=== PATIENT | female | born 1975 | race Caucasian/White ===

== ENCOUNTER 2019-02-09 01:25 | Emergency (ER) | payer BC ==
[2019-02-09] MEDS ORDERED: ONDANSETRON 4 MG/2 ML VIAL ONE ×2 (01:39→04:03)
[2019-02-09] MEDS ORDERED: NA CHLORIDE 0.9% 1,000 ML ONE (01:39)
[2019-02-09] MEDS ORDERED: KETOROLAC 30 MG/ML INJ ONE (01:39)
[2019-02-09 02:06] LABS: Absolute Lymphocytes (CBC) 3.2 K/uL (0.7-4.9); Basophils % 0.7 % (0-1.3); Hematocrit 33.3 % (36.0-45.0); Lymphocytes % 27.7 % (15.3-44.8); MPV 8.4 fL (7.6-11.3); RBC Red Blood Cell Count 3.94 M/uL (3.86-4.86)
[2019-02-09 02:29] LABS: ALT/SGPT 17 U/L (12-78); AST/SGOT 20 U/L (15-37); Albumin 3.3 g/dL (3.4-5.0); Alkaline Phosphatase 49 U/L (45-117); BUN Blood Urea Nitrogen 15 mg/dL (7-18); Bicarbonate 25 mmol/L (21-32); Bilirubin Direct < 0.1 mg/dL (0-0.2); Bilirubin Total 0.3 mg/dL (0.2-1.0); Glucose Level 111 mg/dL (74-106); Lipase 139 U/L (73-393); Protein, Total 6.7 g/dL (6.4-8.2); Sodium Level 141 mmol/L (136-145)
--- NOTE | 2019-02-09 04:20 | ER ---
Nurse's Notes [facility] Name: Kadie George Age: 43 yrs Sex: Female : 1975 Arrival Date: 02/09/2019 Time: 01:27 Bed 5 Private MD: Diagnosis: Cholelithiasis Presentation: 02/09 01:32 Presenting complaint: Patient states: "I have been throwing up and having very bad jd3 stomach pain across the top for about 3 hours now.". Transition of care: patient was not received from another setting of care. Onset of symptoms was February 09, 2019. Risk Assessment: Do you want to hurt yourself or someone else? Patient reports no desire to harm self or others. Initial Sepsis Screen: Does the patient meet any 2 criteria? No. Patient's initial sepsis screen is negative. Does the patient have a suspected source of infection? No. Patient's initial sepsis screen is negative. Care prior to arrival: None. 01:32 Method Of Arrival: Ambulatory jd3 01:32 Acuity: GIOVANI 3 jd3 CONTINUITY TESTER: 01:50 LMP N/A - Irregular menses jd3 Historical: - Allergies: 01:35 No Known Allergies; jd3 - Home Meds: 01:35 None [Active]; jd3 - PMHx: 01:35 None; jd3 - PSHx: 01:35 None; jd3 - Immunization history:: Adult Immunizations up to date. - Social history:: Smoking status: Patient/guardian denies using tobacco. - Ebola Screening: : Patient negative for fever greater than or equal to 101.5 degrees Fahrenheit, and additional compatible Ebola Virus Disease symptoms. Screenin:50 Abuse screen: Denies threats or abuse. Nutritional screening: No deficits noted. jd3 Tuberculosis screening: No symptoms or risk factors identified. Fall Risk IV access (20 points). Ambulatory Aid- None/Bed Rest/Nurse Assist (0 pts). Gait- Normal/Bed Rest/Wheelchair (0 pts) Mental Status- Oriented to own ability (0 pts). Total Vides Fall Scale indicates No Risk (0-24 pts). Assessment: 01:30 General: Appears in no apparent distress. uncomfortable, Behavior is calm, cooperative, jd3 appropriate for age. Pain: Complains of pain in right upper quadrant and left upper quadrant Pain does not radiate. Quality of pain is described as sharp, tender. Neuro: Level of Consciousness is awake, alert, obeys commands, Oriented to person, place, time, situation. Cardiovascular: Denies chest pain, Capillary refill < 3 seconds Patient's skin is warm and dry. Respiratory: Airway is patent Respiratory effort is even, unlabored, Respiratory pattern is regular, symmetrical, Denies cough, shortness of breath. GI: Abdomen is round non-distended, Bowel sounds present X 4 quads. Abd is soft X 4 quads Abdomen is tender to palpation in right upper quadrant and left upper quadrant. : Urine is clear, Denies burning with urination. EENT: No signs and/or symptoms were reported regarding the EENT system. Derm: Skin is intact, Skin is dry, Skin is normal, Skin temperature is warm. Musculoskeletal: Circulation, motion, and sensation intact. Range of motion: intact in all extremities. 02:42 Reassessment: Patient appears in no apparent distress at this time. Patient and/or jd3 family updated on plan of care and expected duration. Pain level reassessed. Patient is alert, oriented x 3, equal unlabored respirations, skin warm/dry/pink. Patient states feeling better. 03:58 Reassessment: Patient appears in no apparent distress at this time. Patient and/or jd3 family updated on plan of care and expected duration. Pain level reassessed. Patient is alert, oriented x 3, equal unlabored respirations, skin warm/dry/pink. awaiting CT scan results. Patient states feeling better. 04:04 Reassessment: Patient appears in no apparent distress at this time. Patient and/or jd3 family updated on plan of care and expected duration. Pain level reassessed. Patient is alert, oriented x 3, equal unlabored respirations, skin warm/dry/pink. reporting feeling nauseous, provider notified. 04:30 Reassessment: Patient appears in no apparent distress at this time. Patient and/or jd3 family updated on plan of care and expected duration. Pain level reassessed. Patient is alert, oriented x 3, equal unlabored respirations, skin warm/dry/pink. reported understanding of discharge instructions, even and steady gait upon discharge. Patient states feeling better. Vital Signs: 01:35 BP 148 / 76; Pulse 66; Resp 18 S; Temp 97.5(O); Pulse Ox 100% on R/A; Weight 127.01 kg jd3 (R); Height 5 ft. 5 in. (165.10 cm) (R); Pain 5/10; 02:42 Pulse 65; Resp 17 S; Pulse Ox 100% on R/A; Pain 2/10; jd3 04:30 BP 125 / 72; Pulse 70; Resp 16 S; Pulse Ox 100% on R/A; Pain 1/10; jd3 01:35 Body Mass Index 46.59 (127.01 kg, 165.10 cm) jd3 ED Course: 01:27 Patient arrived in ED. bb 01:29 Jose R Murray, DARION is PHCP. pm1 01:29 Axel Lopez MD is Attending Physician. pm1 01:32 Leeroy Linares, STEVE is Primary Nurse. jd3 01:33 Triage completed. jd3 01:35 Arm band placed on. jd3 01:44 Inserted saline lock: 20 gauge in right antecubital area, using aseptic technique. mt Blood collected. 01:50 Patient has correct armband on for positive identification. Bed in low position. Call j light in reach. Side rails up X 1. Adult w/ patient. 03:06 CT Abd/Pelvis - IV Contrast Only In Process Unspecified. EDMS 03:07 CT completed. Patient tolerated procedure well. Patient moved to CT via stretcher. Patient moved back from CT. 04:18 Maurice Sofia MD is Referral Physician. tw4 04:19 Mickey Concepcion MD is Referral Physician. tw4 04:19 Jl Thomas MD is Referral Physician. tw4 04:31 No provider procedures requiring assistance completed. IV discontinued, intact, jd3 bleeding controlled, No redness/swelling at site. Pressure dressing applied. Administered Medications: 01:48 Drug: Zofran 4 mg Route: IVP; Site: right antecubital; jd3 02:45 Follow up: Response: No adverse reaction jd3 01:48 Drug: TORadol 30 mg Route: IVP; Site: right antecubital; jd3 02:45 Follow up: Response: No adverse reaction jd3 01:48 Drug: NS 0.9% 1000 ml Route: IV; Rate: 1000 ml; Site: right antecubital; jd3 04:05 Follow up: Response: No adverse reaction; IV Status: Completed infusion; IV Intake: jd3 1000ml 04:05 Drug: Zofran 4 mg Route: IVP; Site: right antecubital; jd3 04:31 Follow up: Response: No adverse reaction jd3 Intake: 04:05 IV: 1000ml; Total: 1000ml. jd3 Outcome: 04:19 Discharge ordered by . tw4 04:31 Discharged to home ambulatory, with family. jd3 04:31 Condition: stable 04:31 Discharge instructions given to patient, Instructed on discharge instructions, follow up and referral plans. medication usage, Demonstrated understanding of instructions, follow-up care, medications, Prescriptions given X 2. 04:31 Patient left the ED. jd3 Signatures: Dispatcher [employer] EDMS Best Argueta Brenda, RN RN Jose R Burk, DARION WELLNESS GUIDE pm1 Breanna Baker mt, Jonathon, RN RN jd3 Wadley, Terrence, MD MD tw4 Corrections: (The following items were deleted from the chart) 04:04 04:04 Reassessment: Patient appears in no apparent distress at this time. Patient jd3 and/or family updated on plan of care and expected duration. Pain level reassessed. Patient is alert, oriented x 3, equal unlabored respirations, skin warm/dry/pink. reporting feeling nauseous. jd3
--- NOTE | 2019-02-09 04:20 | EDPHYS ---
Physician Documentation [facility] Name: Kadie George Age: 43 yrs Sex: Female : 1975 Arrival Date: 02/09/2019 Time: 01:27 Bed 5 Private MD: ED Physician Axel Lopez HPI: 02/09 02:29 This 43 yrs old Female presents to ER via Ambulatory with complaints of pm1 Abdominal Pain, Nausea/Vomiting. 02:29 The patient presents with abdominal pain in the upper abdomen. Onset: The pm1 symptoms/episode began/occurred 3 hour(s) ago. The symptoms do not radiate. Associated signs and symptoms: Pertinent positives: nausea and vomiting, Pertinent negatives: chest pain, diarrhea, dysuria, fever, headache, shortness of breath. The symptoms are described as achy, crampy. Modifying factors: The symptoms are alleviated by nothing, the symptoms are aggravated by nothing. Severity of pain: in the emergency department the pain is actually worse. The patient has experienced a previous episode, approximately 5 months ago, dx with gastritis. The patient has not recently seen a physician. SLASHER RUNNER: 01:50 LMP N/A - Irregular menses jd3 Historical: - Allergies: 01:35 No Known Allergies; jd3 - Home Meds: 01:35 None [Active]; jd3 - PMHx: 01:35 None; jd3 - PSHx: 01:35 None; jd3 - Immunization history:: Adult Immunizations up to date. - Social history:: Smoking status: Patient/guardian denies using tobacco. - Ebola Screening: : Patient negative for fever greater than or equal to 101.5 degrees Fahrenheit, and additional compatible Ebola Virus Disease symptoms. ROS: 02:29 Constitutional: Negative for fever, chills, and weight loss, Eyes: Negative for injury, pm1 pain, redness, and discharge, ENT: Negative for injury, pain, and discharge, Neck: Negative for injury, pain, and swelling, Cardiovascular: Negative for chest pain, palpitations, and edema, Respiratory: Negative for shortness of breath, cough, wheezing, and pleuritic chest pain. 02:29 Back: Negative for injury and pain, : Negative for injury, bleeding, discharge, and swelling, MS/Extremity: Negative for injury and deformity, Skin: Negative for injury, rash, and discoloration, Neuro: Negative for headache, weakness, numbness, tingling, and seizure. 02:29 Abdomen/GI: Positive for abdominal pain, nausea and vomiting, Negative for diarrhea, constipation. Exam: 02:29 Constitutional: This is a well developed, well nourished patient who is awake, alert, pm1 and in no acute distress. Head/Face: Normocephalic, atraumatic. Chest/axilla: Normal chest wall appearance and motion. Nontender with no deformity. No lesions are appreciated. Cardiovascular: Regular rate and rhythm with a normal S1 and S2. No gallops, murmurs, or rubs. Normal PMI, no JVD. No pulse deficits. Respiratory: Lungs have equal breath sounds bilaterally, clear to auscultation and percussion. No rales, rhonchi or wheezes noted. No increased work of breathing, no retractions or nasal flaring. 02:29 Back: No spinal tenderness. No costovertebral tenderness. Full range of motion. Skin: Warm, dry with normal turgor. Normal color with no rashes, no lesions, and no evidence of cellulitis. MS/ Extremity: Pulses equal, no cyanosis. Neurovascular intact. Full, normal range of motion. 02:29 Abdomen/GI: Inspection: obese Bowel sounds: normal, Palpation: soft, mild abdominal tenderness, in the right upper quadrant and left upper quadrant, mass, is not appreciated, rebound tenderness, is not appreciated. 02:29 Neuro: Orientation: is normal, Motor: is normal, moves all fours, Sensation: Vital Signs: 01:35 BP 148 / 76; Pulse 66; Resp 18 S; Temp 97.5(O); Pulse Ox 100% on R/A; Weight 127.01 kg jd3 (R); Height 5 ft. 5 in. (165.10 cm) (R); Pain 5/10; 02:42 Pulse 65; Resp 17 S; Pulse Ox 100% on R/A; Pain 2/10; jd3 04:30 BP 125 / 72; Pulse 70; Resp 16 S; Pulse Ox 100% on R/A; Pain 1/10; jd3 01:35 Body Mass Index 46.59 (127.01 kg, 165.10 cm) jd3 MDM: 01:32 Patient medically screened. pm1 02:32 Data reviewed: vital signs. Data interpreted: Pulse oximetry: on room air is 100 %. pm1 Interpretation: normal. 02/09 01:34 Order name: Basic Metabolic Panel pm1 02/09 01:34 Order name: CBC with Diff; Complete Time: 02:28 pm1 02/09 01:34 Order name: Creatinine for Radiology; Complete Time: 02:32 pm1 02/09 01:34 Order name: Hepatic Function; Complete Time: 02:32 pm1 02/09 04:11 Interpretation: Normal except: ALB 3.3; A/G 1.0. tw4 02/09 01:34 Order name: Lipase; Complete Time: 02:32 pm1 02/09 01:35 Order name: Basic Metabolic Panel; Complete Time: 02:32 EDMS 02/09 01:34 Order name: IV Saline Lock; Complete Time: 01:47 pm1 02/09 01:34 Order name: CT Abd/Pelvis - IV Contrast Only pm1 02/09 01:53 Order name: Urine Dipstick--Ancillary (enter results) em1 02/09 01:53 Order name: Urine --Ancillary (enter results) em02/09 01:34 Order name: Labs collected and sent; Complete Time: 01:47 pm1 02/09 01:34 Order name: Urine Dipstick-Ancillary (obtain specimen); Complete Time: 01:47 pm1 02/09 01:34 Order name: Urine Test (obtain specimen); Complete Time: 01:47 pm1 Administered Medications: 01:48 Drug: Zofran 4 mg Route: IVP; Site: right antecubital; jd3 02:45 Follow up: Response: No adverse reaction jd3 01:48 Drug: TORadol 30 mg Route: IVP; Site: right antecubital; jd3 02:45 Follow up: Response: No adverse reaction jd3 01:48 Drug: NS 0.9% 1000 ml Route: IV; Rate: 1000 ml; Site: right antecubital; jd3 04:05 Follow up: Response: No adverse reaction; IV Status: Completed infusion; IV Intake: jd3 1000ml 04:05 Drug: Zofran 4 mg Route: IVP; Site: right antecubital; jd3 04:31 Follow up: Response: No adverse reaction jd3 Disposition: 06:27 Co-signature as Attending Physician, Axel Lopez MD I agree with the assessment and tw4 plan of care. Disposition: 02/09/19 04:19 Discharged to Home. Impression: Cholelithiasis. - Condition is Stable. - Discharge Instructions: Biliary Colic, Adult. - Prescriptions for Ibuprofen 800 mg Oral Tablet - take 1 tablet by ORAL route every 12 hours As needed take with food; 20 tablet. Zofran 4 mg Oral Tablet - take 1 tablet by ORAL route every 12 hours As needed; 20 tablet. - Medication Reconciliation Form, Thank You Letter, Antibiotic Education, Prescription Opioid Use form. - Follow up: Private Physician; When: Upon discharge from the Emergency Department; Reason: If symptoms return, Recheck today's complaints, Continuance of care. Follow up: Maurice Sofia MD; When: Upon discharge from the Emergency Department; Reason: If symptoms return, Recheck today's complaints, Continuance of care. Follow up: Mickey Concepcion MD; When: Upon discharge from the Emergency Department; Reason: If symptoms return, Recheck today's complaints, Continuance of care. Follow up: Jl Thomas MD; When: Upon discharge from the Emergency Department; Reason: If symptoms return, Recheck today's complaints, Continuance of care. - Problem is new. - Symptoms have improved. Signatures: Dispatcher [employer] EDMS Jose R Murray, SEO ASSOCIATE SEO ASSOCIATE pm1 Leeroy Linares, STEVE RN Axel Spencer MD MD tw4 Corrections: (The following items were deleted from the chart) 04:31 04:19 02/09/2019 04:19 Discharged to Home. Impression: Cholelithiasis. Condition is jd3 Stable. Forms are Medication Reconciliation Form, Thank You Letter, Antibiotic Education, Prescription Opioid Use. Follow up: Private Physician; When: Upon discharge from the Emergency Department; Reason: If symptoms return, Recheck today's complaints, Continuance of care. Follow up: Maurice Sofia; When: Upon discharge from the Emergency Department; Reason: If symptoms return, Recheck today's complaints, Continuance of care. Follow up: Dr. Mickey Concepcion; When: Upon discharge from the Emergency Department; Reason: If symptoms return, Recheck today's complaints, Continuance of care. Follow up: Jl Thomas; When: Upon discharge from the Emergency Department; Reason: If symptoms return, Recheck today's complaints, Continuance of care. Problem is new. Symptoms have improved. tw4
[2019-02-09 04:39] VITALS: TEMP 97.5; O2SAT 100
[2019-02-09 04:42] VITALS: BP 125/72
[2019-02-09 05:15] LABS: Urine Blood TRACE (NEG); Urine Glucose NEGATIVE (NEG); Urine Protein NEGATIVE (NEG); Urine Specific Gravity 1.025 (1.005-1.030)
--- NOTE | 2019-02-09 10:39 | RAD REPORT ---
EXAM DESCRIPTION: CT - Abdomen Pelvis W Contrast - 02/09/2019 4:11 am CLINICAL HISTORY: The patient is 43 years old and is Female; ABD PAIN TECHNIQUE: Axial computed tomography images of the abdomen and pelvis with intravenous contrast. S agittal and coronal reformatted images were created and reviewed. This CT exam was performed using one or more of the following dose reduction techniques: automated exposure control, adjustment of t he mA and/or kV according to patient size, and/or use of iterative reconstruction technique. COMPARISON: No relevant prior studies available. FINDINGS: LUNG BASES: Unremarkable. No mass. No consolidation. HEART: The heart is enlarged. ABDOMEN: LIVER: Unremarkable. No mass. GALLBLADDER AND BILE DUCTS: A large gallstone is present within the neck of the gallbladder. PANCREAS: No ductal dilation. No mass. SPLEEN: Unremarkable. ADRENALS: Unremarkable. No mass. KIDNEYS AND URETERS: Unremarkable. No solid mass. No hydronephrosis. STOMACH AND BOWEL: The stomach is minimally fluid filled. The small bowel is normal in caliber. Stool is present throughout the colon. There is no mucosal thickening or evidence of bowel obstructio n. PELVIS: APPENDIX: The appendix is normal in caliber without surrounding inflammation. BLADDER: Unremarkable. No mass. REPRODUCTIVE: A 3.2 cm left ovarian cyst is present. No follow-up imaging is recommended. The ut erus and right ovary are unremarkable. ABDOMEN and PELVIS: INTRAPERITONEAL SPACE: Unremarkable. No free air. No significant fluid collection. BONES/JOINTS: No acute fracture. SOFT TISSUES: The soft tissues are normal. VASCULATURE: Unremarkable. No abdominal aortic aneurysm. LYMPH NODES: Unremarkable. No enlarged lymph nodes. IMPRESSION: Large gallstone lodged within the gallbladder neck. If there is clinical concern for acu te gallbladder pathology, findings could be further evaluated with ultrasound or HIDA scan. Electronically signed by: Savanah Mcbride MD 02/09/2019 4:07 AM CDT Due to temporary technical issues with the PACS/Fluency reporting system, reports are being signed by the in house radiologist as a courtesy to ensure prompt reporting. The interpreting radiologist is f ully responsible for the content of the report.
== END 2019-02-09 04:31 | disposition home or self-care (01) ==
LOC: ER 01:25
DX: K80.20 Calculus of gallbladder without cholecystitis without obstruction (principal)
CPT/HCPCS: 85025; 80048; 36415; 81025; 80076; 81003; 83690; 74177; Q9967; J7030; J2405 ×2; 96361; 96374; 96375; 99284

== ENCOUNTER 2019-02-18 10:48 | Day surgery (SDC) | payer BC ==
[2019-02-18] MEDS ORDERED: CEFAZOLIN/SWI 2gm 2 GM/20 ML SYR ONE (11:07)
[2019-02-18] MEDS ORDERED: Ringers Lactate 1,000 ML IV ONE (11:07)
[2019-02-18 11:29] LABS: Specific Gravity 1.015 (1.005-1.030)
[2019-02-18] MEDS ORDERED: MIDAZOLAM HCL 2 MG/2 ML INJ ONE (11:50)
[2019-02-18] MEDS ORDERED: PROPOFOL 200 MG/20 ML VIAL IV ONE ×2 (11:50→15:02)
[2019-02-18] MEDS ORDERED: FENTANYL CITR 100 MCG/2 ML ONE ×2 (11:50→14:36)
[2019-02-18] MEDS ORDERED: LIDOCAINE 2% MPF 5 ML VIAL ONE (11:51)
[2019-02-18] MEDS ORDERED: ONDANSETRON 4 MG/2 ML VIAL ONE ×2 (11:52→15:48)
[2019-02-18] MEDS ORDERED: KETOROLAC 30 MG/ML INJ ONE (14:15)
[2019-02-18] MEDS: HYDROMORPHONE HCL 1 MG/ML INJ ONE ×5 (15:10→15:27)
[2019-02-18] MEDS ORDERED: HYDROCODONE/APAP 5/325 MG TAB ONE (16:01)
[2019-02-18 16:53] VITALS: BP 165/86; TEMP 97.7; O2SAT 97
--- NOTE | 2019-02-19 10:20 | OP ---
Date of Procedure: 02/18/2019 Surgeon: Carol Crowder MD Preoperative Diagnoses: Heavy menstrual bleeding with regular cycles and dysmenorrhea and thickened endometrium. Postoperative Diagnoses: Heavy menstrual bleeding with regular cycles and dysmenorrhea thickened end ometrium. Procedures Performed: Hysteroscopy, D and C. Small polyps were removed as well. The endometrial ab lation with HTA. Complex procedure took about 45 minutes to perform. Anesthesia: General with LMA. Specimens: Endometrial curettings. Complications: No complications. Drains: No drains. Condition: Stable. Findings: The entire ablation cycle was completed. Intracavitary polyps were seen, that were tiny a nd had to be removed as they were occluding the drainage and I was unable to get a good flow check on the HTA machine. Deficit was a problem. She had to be dilated in order for the polypectomies to be performed. Once this was done, it was back bled that had to fixed as well. Once this was done, the entire cycle was conducted without any interruption. The patient is a 43-year-old with heavy bleeding. She has been evaluated with endometrial sampling. No atypia or malignancy. The patient has risk factors for this however after the sampling has been completed, the patient wanted to proceed with all the options including Levonorgestrel IUD and ablati on were discussed with the patient and the benefits risks were discussed. The patient had a tubal in the past, postablation tubal ligation syndrome. All complications including immediate and late life postop tubal ligation syndrome besides bleeding with infection, perforation were all discussed with the patient. Then, she was taken to the OR, 2 g of Ancef were given. She was placed in a supine fas hion on the operating table. General anesthesia given. She was placed in dorsal lithotomy position. Pelvic exam performed. Uterus enlarged, anteflexed, prep x3 with Betadine was done. Anterior lip grasped with tenaculum and then later an Allis clamp. As she was current, an attempt was made to ent er the uterine cavity. There were polyps, 1 near the internal os and 1 just inside it on the anterio r wall of the lowest part of the endometrial canal. There were other tiny thickened polypoid endomet rial tissue all around the uterine cavity. There was occlusion at the tip from these polyps, so care fully had to remove the polyps with the help of polyp forceps, and then once the cavity was entered, it was still difficult to perform the procedure because of the occlusion of the drainage tubing, whic h allowed the machine to . Then, the endometrial polyps were attempted to be removed again and once some more came out, still th e same problem was encountered. Then, D and C was performed after dilating the patient to 14-Greenlandic. Once all the tissue was retrieved, then thorough irrigation and suction of the cavity was performed with a HTA sheath, and the seal was obtained by placing an Allis on top of the HTA sheath next to it to prevent leakage. Once this was done, and finally the tip of the scope was placed in the center o f the cavity and the posterior vagina was packed after the cavity integrity test was done for minutes and there was no fluid loss. The entire ablation cycle took 1 minute and 11 seconds, was completed without any problems. At this point, there was occlusion of the drainage tubing and so once this was cleared . Ablation cycle and 1.5 minutes cooling cycle was connected. 30 mg of Toradol w as given for this patient. She was recovered from anesthesia and taken to the PACU. After the instr uments were removed, instrument, needle and sponge counts were done and were correct at the end of th e case was good ablation effect. There was irrigation after the ablation was completed. The patient was recovered from anesthesia and taken to PACU in stable condition. The EBL was minimal. She has a 1 month appointment. KEIRA Voice ID: [id number] Report ID: [id number]
== END 2019-02-18 16:50 | disposition home or self-care (01) ==
LOC: OR 10:48
PROVIDERS: ATTEND Obstetrics & Gynecology
PROC: 0U5B8ZZ Destruction of Endometrium, Via Natural or Artificial Opening Endoscopic (ICD-10-PCS; principal; 2019-02-18 13:00)
PROC: 0UDB7ZX Extraction of Endometrium, Via Natural or Artificial Opening, Diagnostic (ICD-10-PCS; 2019-02-18 13:00)
DX: N92.0 Excessive and frequent menstruation with regular cycle (principal); N94.6 Dysmenorrhea, unspecified; N84.0 Polyp of corpus uteri; R93.89 Abnormal findings on diagnostic imaging of other specified body structures; E66.9 Obesity, unspecified; Z68.42 Body mass index [BMI] 45.0-49.9, adult; F41.9 Anxiety disorder, unspecified; F32.9 Major depressive disorder, single episode, unspecified; Z83.3 Family history of diabetes mellitus
CPT/HCPCS: 81025; 88305; 58563; J2704; J2250; J3010 ×2; J1170 ×2; J0690; J2405 ×2

== ENCOUNTER 2019-12-21 06:25 | Day surgery (SDC) | payer BC ==
[2019-12-16 11:17] LABS: Absolute Lymphocytes (CBC) 2.8 K/uL (0.7-4.9); Basophils % 0.5 % (0-1.3); Hematocrit 36.2 % (36.0-45.0); Lymphocytes % 27.3 % (15.3-44.8); MPV 7.9 fL (7.6-11.3); RBC Red Blood Cell Count 4.22 M/uL (3.86-4.86)
--- OUTSIDE RECORDS SUMMARY | 2019-12-21 06:28 | XMS REPORT | Continuity of Care Document ---
:1975 Author Organization [facility] t Address [address] [place] [id number] Care Team Providers Name Role Phone Unavailable Unavailable Unavailable Problems This patient has no known problems. Allergies, Adverse Reactions, Alerts This patient has no known allergies or adverse reactions. Medications This patient has no known medications. Procedures This patient has no known procedures. Results Test Description Test Time Test Comments Results Result [facility] e Comments SCR MAMM 2018-10-23 MAMM BILATERAL BILATERAL CORDELL 15:21:06 CORDELL CAD CAD DIGITAL DIGITALBILATERAL FIRST EVER DIGITAL SCREENING MAMMOGRAM 3D/2D WITH CAD: 10/22/2018CLINICAL: Asymptomatic. Digital breast tomosynthesis was performed in addition to routine CC and MLO views. Current mammographic images were evaluated by either a [employer] M-Vu or a [employer] ImageChecker CAD (computer aided detection system). No prior exams were available for comparison. This is a baseline exam. The tissue of both breasts is heterogeneously dense. This may lower the sensitivity of mammography. No suspicious mass, architectural distortion, malignant type calcification, or lymph node abnormality detected. IMPRESSION: NEGATIVEThere is no mammographic evidence of malignancy. Resume annual screening mammography in one year. Your patient's mammogram demonstrates that she has dense breast tissue. This can hide abnormalities. In compliance with [place] law ([place]'s Law), your patient has been sent a letter which informs her of her breast density and notifies her that, depending on her individual risk factors for the development of breast cancer, she might benefit from additional screening tests such as ultrasound. Dense breast tissue, in and of itself, is a relatively common condition. Therefore, this information is not provided to cause undue concern, but rather to raise awareness and to promote discussion regarding the presence of other risk factors, in addition to dense breast tissue.Kevin Mcpherson M.D. rb/:10/23/2018 15:21:06 Bacteriology Professor: Luna Urias MM, [facility] Mammographyletter sent: BIRADS 1-2 Normal Mammogram BI-RADS: 1 Negative
[2019-12-21] MEDS ORDERED: HEPARIN 5000 UNIT/ML 1 ML VIAL ONE (06:52)
[2019-12-21] MEDS ORDERED: Ringers Lactate 1,000 ML IV ONE ×3 (06:52→11:01)
[2019-12-21] MEDS ORDERED: CEFAZOLIN/SWI 1gm 1 GM/10 ML SYR ONE (06:52)
[2019-12-21] MEDS ORDERED: SCOPOLAMINE HYDROBROMIDE PATCH TD ONE (06:52)
[2019-12-21] MEDS ORDERED: CEFAZOLIN/SWI 2gm 2 GM/20 ML SYR ONE (06:53)
[2019-12-21] MEDS ORDERED: propofoL 200 MG/20 ML VIAL IV ONE (07:23)
[2019-12-21] MEDS ORDERED: FENTANYL CITR 250 MCG/5 ML ONE (07:24)
[2019-12-21] MEDS ORDERED: dexAMETHasone 10 MG/ML VIAL ONE (07:24)
[2019-12-21] MEDS ORDERED: MIDAZOLAM HCL 2 MG/2 ML INJ ONE (07:24)
[2019-12-21] MEDS ORDERED: ONDANSETRON 4 MG/2 ML VIAL ONE (07:24)
[2019-12-21] MEDS ORDERED: ROCURONIUM 50 MG/5 ML VIAL IV ONE (07:24)
[2019-12-21] MEDS ORDERED: LIDOCAINE 2% MPF 5 ML VIAL ONE (07:24)
[2019-12-21] MEDS ORDERED: BUPIVACAINE 0.25% PF 30 ML VIAL ONE (07:33)
[2019-12-21] MEDS ORDERED: KETAMINE HCL 500 MG/5 ML VIAL ONE (08:15)
[2019-12-21] MEDS ORDERED: GLYCOPYRROLATE 0.2 MG/ML SYR ONE ×2 (08:45→10:59)
[2019-12-21] MEDS ORDERED: VECURONIUM 10 MG/VIAL IV ONE ×2 (08:54→10:28)
[2019-12-21] MEDS ORDERED: KETOROLAC 30 MG/ML INJ ONE (10:40)
[2019-12-21] MEDS ORDERED: NEOSTIGMINE 1 MG/ML -5 ML ONE (10:59)
[2019-12-21] MEDS ORDERED: MORPHINE 10 MG/ML VIAL ONE (11:17)
[2019-12-21] MEDS ORDERED: HYDROCODONE/APAP 5/325 MG TAB ONE (12:41)
--- NOTE | 2019-12-21 13:03 | OP ---
Date of Procedure: 12/21/2019 Surgeon: Carol Crowder MD [employer] Guard: Loren Borges. Preoperative Diagnoses: Menorrhagia, recurrent after ablation; pelvic pain. Morbid obesity, BMI 54. Postoperative Diagnoses: Menorrhagia, recurrent after ablation; pelvic pain and bilateral hematosalp inges. No endometriosis. Morbid obesity, BMI 54. Procedures Performed: Laparoscopic supracervical hysterectomy, bilateral salpingectomy, mini-lap for removal of uterine specimen. Estimated Blood Loss: Less than 50. Specimens: Uterus bilateral tubes. Complications: No complications. Drains: None. Condition: Stable. Indications For Procedure: The patient is a 44-year-old, presented with abnormal bleeding. Endometr ium was sampled, negative for atypia. Underwent an ablation about 6 months ago. Had improvement in her bleeding for a few months and then recurred with bleeding and much severe pain. Pain is way out of proportion to her bleeding and has been constant and after having discussed medical treatment opti ons, which had failed and was the reason why she went to the ablation. Discussed about the hysterect alexander, benefits and risks, and all the comorbid given her comorbidities. She was consented and brought to the OR. Description Of Procedure: 3 g of Ancef preop were given. 5000 heparin subcu was given. The patient was taken back to OR, placed in a supine fashion. General anesthesia given, intubation without any problems. Placed in a dorsal lithotomy position using Gallo stirrups. Arms tucked by the side using the sliders. After positioning, it was checked. SCDs were started. Time-out was done. Abdomen, v ulva, vagina, and perineum were prepped and draped in a sterile fashion. Park placed to drain the b ladder and attached for retrograde filling. A medium VCare introduced into the uterus without any pr oblems and fixed in place. The Park was then drained using the bag and the area was draped. A 1 cm supraumbilical incision made with a scalpel using open laparoscopy technique. Fascia was inci sed, tagged with 0 Vicryl sutures. Peritoneum entered bluntly. S-retractors were placed. Catrachito in troduced. There was 1 episode of bradycardia where we had to stop and then once this was recovered b ack to the heart rate in the 50s, then insufflation was done. After adequate insufflation, the camer a was used to check the site of entry unremarkable. The patient was then placed in Trendelenburg pos ition. I increased the pressure to 17 as there was very difficult visualization due to poor distenti on. Probably about 30-40 minutes at the end of the case, the insufflation max pressure was decreased to 16 mmHg and the patient appeared to be very stable at this point. No hemodynamics changes. Five left and right lower quadrant ports were placed under direct vision. Suprapubic 10-port was corky mckenzie after visualization of the pelvic cavity. Both hematosalpinges. These were observed. Uterus un remarkable. No endometriosis seen. Ureters unremarkable in their course. Ovaries completely normal . The plan was to do a supracervical hysterectomy and then to decrease the comorbidities as well as the ease of completion without conversion. The left tube was dissected with the help of the LigaSure, removed and handed off for specimen. Then , the utero-ovarian ligament and round ligament were taken down. Broad ligament opened up anterior p osterior leaves. The anterior broad ligament was opened up to create a bladder flap and the bladder was dissected inferiorly. Did not have to go much below the cup at all since the intention was to pe rform a supracervical. Posteriorly, peritoneum taken down to the area above the uterosacral insertion. Then, vessels were s keletonized, cauterized with bipolar basket tip. Then, went over to the opposite side, took the tube out with the LigaSure. Utero-ovarian ligament was cut. The round ligament was taken down. The bro ad ligament was taken down to the vessels. Vessels skeletonized. Anterior peritoneum raised to diss ect the bladder inferiorly and posteriorly, opened up to do the dissection made on the opposite side. Then, vessels were taken down after being skeletonized. There was excellent hemostasis. Then, usi ng a monopolar hook blade, the specimen was cut at the level of the internal os, possibly a little in ferior taking part of the cervix. Once the specimen was circumferentially cut and detached, a single -tooth tenaculum was used to hold the specimen. VCare removed. Then, cauterized the canal with the help of the bipolar basket tip and then hemostasis was secured on the cervix as appropriate. Kevinoug h irrigation suction was performed. The specimen was stitched on the cervix with a 0 Vicryl stitch s o that this could be held through the suprapubic port. All the ports were removed under direct visio n. Thorough irrigation suction was performed. Photographs were taken. Then, after de-sufflating th e abdomen, the fascia above the umbilicus was closed with the tagged 0 Vicryl sutures, tied to each o ther, subcutaneous simple 0 Vicryl stitch. All skin incisions closed with the help of melanie. The suprapubic incision was extended to about 5 cm in total. Skin taken down with the scalpel, subcu taneous tissues with Bovie. The fascia opened up with the Bovie as well, then the rectus muscles. The specimen was able to be removed without any further extension. The fascial incision wa s also about 5 cm. Once the specimen was removed, the fascia was closed with the help of a continuou s running 0 PDS. Thorough irrigation suction was performed. The subcutaneous plane and subcutaneous closed with interrupted 3-0 chromic and skin closed with melanie. The Park and the vaginal retract or were all removed. Instrument, needle, and sponge counts were done and were correct at the end of the case. The patient tolerated the procedure well. She was recovered from anesthesia and taken to PACU in stable condition. She has a narcotic prescription called into her pharmacy, which her emmett d will pick up driver. Discussed with her about her findings and her recovery. Gave all the precau tions for prevention of the PE or DVT. Instructions were given to the patient in particular to call with any symptomatic problems and obstructive sleep apnea. Warnings were also given and education wa s done. Postop she will follow up with me. CRISTOFER/FAMILIA Voice ID: [id number] Report ID: [id number]
[2019-12-21 14:50] VITALS: BP 145/85; O2SAT 100
[2019-12-21 14:54] VITALS: TEMP 97
== END 2019-12-21 13:35 | disposition home or self-care (01) ==
LOC: OR 06:25
PROVIDERS: ATTEND Obstetrics & Gynecology
PROC: 0UT74ZZ Resection of Bilateral Fallopian Tubes, Percutaneous Endoscopic Approach (ICD-10-PCS; 2019-12-21)
PROC: 0UT94ZL Resection of Uterus, Supracervical, Percutaneous Endoscopic Approach (ICD-10-PCS; principal; 2019-12-21 07:30)
DX: N92.1 Excessive and frequent menstruation with irregular cycle (principal); N83.6 Hematosalpinx; D25.9 Leiomyoma of uterus, unspecified; N80.0 Endometriosis of uterus; N83.8 Other noninflammatory disorders of ovary, fallopian tube and broad ligament; N70.11 Chronic salpingitis; K66.0 Peritoneal adhesions (postprocedural) (postinfection); E66.01 Morbid (severe) obesity due to excess calories; Z68.43 Body mass index [BMI] 50.0-59.9, adult; Z11.59 Encounter for screening for other viral diseases
CPT/HCPCS: 58542; 85025; 80048; 36415; 86900; 86850; 81025; 86901; 88307; U0002; J2704; J1644; J2250; J3010; J1100; J2710; J0690 ×2; J7120 ×3; J2405

== ENCOUNTER 2024-03-16 06:24 | Inpatient (IN) | payer BC ==
--- OUTSIDE RECORDS SUMMARY | 2024-03-16 06:28 | XMS REPORT | Continuity of Care Document ---
Author Name Unknown Address [address] [facility] Link. [address] [place] [address] [facility] thconnect Address [address] [facility]. [address] [place] [address] Care Team Providers Care Underwater Photographer Name Role Phone Rex Josh Primary Care Physician [phone] YNES NAPIER III Attending Clinician Unavailrosendo Napier III, MD, Ynes Spain Attending Clinician [phone] Unknown, Attending Attending Clinician Unavailab le Doctor Unassigned, [place] Attending Clinician U casandra Gandhi MD, Lidia Attending Clinician [phone] Saritha Patton Attending Clinician [phone] SARITHA GOLDEN Attending Clinician UnavailKATHLEEN Story Attending Clinician Unavailable Kathleen Harris Attending Clinician [phone] Harshal Thmoas MD Attending Clinician [phone] KATHLEEN SANDOVAL Admitting Clinician Unavailable Payers Payer Name Policy Type Policy Number Effective Date Expirati on Date Source [facility] [id number] 2014 00:00:00 Problems Condition Name Condition Details Condition Category Status Onset Date Resolution Date Last Treatment Date Treating Clinician Comments Source No known active problems No known active problems Disease [facility] Allergies, Adverse Reactions, Alerts Allergy Name Allergy Type Status Severity Reaction(s) Onset Date Inactive Date Treating Clinician Comments Source NO KNOWN ALLERGIE S Drug Class Active [facility] Social History Social Habit Start Date Stop Date Quantity Comments Source [facility] to SARS-CoV-2 (event) 2022-04-24 00:00:00 2022-05-04 09:06:00 Not sure [facility] History of Social function 2022-05-04 00:00:00 2022-05-04 00:00:00 [facility] Tobacco use and exposure 2021-02-03 00:00:00 2021-02-03 00:00:00 Smokeless tobacco non-user [facility] Sex Assigned At 1975 00:00:00 1975 00:00:00 [facility] Smoking Status Start Date Stop Date Source Tobacco smoking consumption unknown [facility] Never smoked tobacco [facility] Medications Ordered Medication Name Filled Medication Name Start Date Stop Date Current Medication? Ordering Clinician Indication Dosage Frequency Signature (SIG) Comments Components Source benzonatate 100 mg capsule 2021-06 00:00: 00 Yes [id number] 100mg Take 1 capsule by mouth every 8 (eight) hours as needed for Cough. [facility] erythromyci n 5 mg/gram (0.5 %) ophthalmic ointment 02-03 00:00: 00 Yes [id number] .5[in_u s] Place 0.5 Inches in right eye 4 (four) times daily. [facility] benzonatate 100 mg capsule 02-03 00:00: 00 Yes [id number] 200mg Take 2 capsules by mouth 2 (two) times daily as needed for Cough. [facility] bromphenira mine-pseudo ephedrine-D M (BROMFED DM) 2-30-10 mg/5 mL syrup 02-03 00:00: 00 Yes [id number] 5mL Take 5 mL by mouth 4 (four) times daily as needed for Congestion /Allergies . [facility] lisinopriL (PRINIVIL,Z ESTRIL) tablet 20 mg 10-29 14:00: 00 Yes 20mg 20 mg, Oral, DAILY, First dose on 10/29/20 at 0900, Until Discontinu ed, Routine [facility] lisinopriL 20 mg tablet 10-28 00:00: 00 11-28 04:59 :00 No [id number] 20mg Take 1 tablet by mouth daily for 30 days. [facility] benzonatate 100 mg capsule 10-02 00:00: 00 Yes [id number] 100mg Take 1 capsule by mouth 3 (three) times daily as needed for Cough. [facility] traMADOL 50 mg tablet 10-06 00:00: 00 Yes [id number] 50mg Take 1 tablet by mouth every 6 (six) hours as needed for Pain (scale 7-10). [facility] acetaminoph en-codeine (TYLENOL-CO DEINE #3) 300-30 mg tablet 09-18 00:00: 00 Yes [id number] 1{tbl} Take 1 tablet by mouth every 6 (six) hours as needed for Pain (scale 4-6). [facility] ondansetron (ZOFRAN ODT) 4 mg disintegrat ing tablet 09-18 00:00: 00 Yes [id number] 4mg Take 1 tablet by mouth every 8 (eight) hours as needed for Nausea and Vomiting (N/V). [facility] Vital Signs Vital Name Observation Time Observation Value Comments S mark Systolic blood pressure 2022-05-04 15:15:00 141 mm[Hg] [facility] Diastolic blood pressure 2022-05-04 15:15:00 94 mm[Hg] [facility] Heart rate 2022-05-04 15:14:00 80 /min [facility] Body temperature 2022-05-04 15:14:00 36.94 Blanca [facility] Respiratory rate 2022-05-04 15:14:00 16 /min [facility] Body height 2022-05-04 15:14:00 165.1 cm [facility] Body weight 2022-05-04 15:14:00 167.377 kg [facility] BMI 2022-05-04 15:14:00 61.40 kg/m2 [facility] Oxygen saturation in Arterial blood by Pulse oximetry 2022-05-04 15:14:00 98 /min [facility] Systolic blood pressure 2021-02-03 14:46:00 145 mm[Hg] [facility] Diastolic blood pressure 2021-02-03 14:46:00 99 mm[Hg] [facility] Heart rate 2021-02-03 14:46:00 74 /min [facility] Respiratory rate 2021-02-03 14:46:00 20 /min [facility] Body height 2021-02-03 14:46:00 165.1 cm [facility] Body weight 2021-02-03 14:46:00 160.8 kg [facility] BMI 2021-02-03 14:46:00 58.99 kg/m2 [facility] Oxygen saturation in Arterial blood by Pulse oximetry 2021-02-03 14:46:00 97 /min [facility] Systolic blood pressure 2020-10-29 00:41:00 160 mm[Hg] [facility] Diastolic blood pressure 2020-10-29 00:41:00 105 mm[Hg] [facility] Heart rate 2020-10-29 00:35:00 78 /min [facility] Respiratory rate 2020-10-29 00:35:00 22 /min [facility] Oxygen saturation in Arterial blood by Pulse oximetry 2020-10-29 00:35:00 99 /min [facility] Body temperature 2020-10-28 23:32:55 36.5 Blanca [facility] Body weight 2020-10-28 23:23:00 136.079 kg [facility] BMI 2020-10-28 23:23:00 49.92 kg/m2 [facility] Systolic blood pressure 2020-10-02 13:24:00 153 mm[Hg] [facility] Diastolic blood pressure 2020-10-02 13:24:00 112 mm[Hg] [facility] Heart rate 2020-10-02 13:24:00 86 /[facility] Body [facility] 2020-10-02 13:24:00 36.78 Blanca [facility] Respiratory rate 2020-10-02 13:24:00 18 /min [facility] Body weight 2020-10-02 13:24:00 136.079 kg [facility] BMI 2020-10-02 13:24:00 49.92 kg/m2 [facility] Oxygen saturation in Arterial blood by Pulse oximetry 2020-10-02 13:24:00 96 /min [facility] Procedures Procedure Date / Time Performed Performing Clinicia n Source POCT MOLECULAR FLU 2022-05-04 15:17:00 Unknown, Attend ing [facility] POCT MOLECULAR STREP 2022-05-04 15:14:00 Unknown, Atte aries [facility] ASSIGNMENT OF BENEFITS 2022-05-04 15:05:04 Docto r Unassigned, [place] [facility] XR CHEST 1 VW 2020-10-28 23:49:06 [facility] TROPONIN I 2020-10-28 23:37:00 Kathleen Sandoval [facility] BASIC METABOLIC PANEL (NA, K, CL, CO2, GLUCOSE, BUN, CREATININE, CA) 2020-10-28 23:37:00 Kathleen Sandoval [facility] CBC WITH DIFF 2020-10-28 23:37:00 Kathleen Sandoval [facility] NOTICE OF PRIVACY PRACTICES 2020-10-28 23:16:39 Doctor Unassigned, [place] [facility] CONSENT/REFUSAL FOR DIAGNOSIS AND TREATMENT 2020-10-28 23:16:09 Doctor Unassigned, [place] [facility] XR CHEST 2 VW 2020-10-02 14:19:06 Harshal Thomas [facility] ADC,CLC OR LCC ONLY - INFLUENZA A & B DIRECT ANTIGEN 2020-10-02 14:19:00 Harshal Thomas [facility] COVID-19 (ID NOW RAPID TESTING) 2020-10-02 14:19:00 Harshal Thomas [facility] NOTICE OF PRIVACY PRACTICES 2020-10-02 13:18:15 Doctor Unassigned, [place] [facility] CONSENT/REFUSAL FOR DIAGNOSIS AND TREATMENT 2020-10-02 13:17:56 Doctor Unassigned, [place] [facility] Encounters Start Date/Time End Date/Time Encounter Type Admission Type Attending [facility] Facility Care Department Encounter ID Source 2022-05-04 09:00:00 2022-05-04 09:38:49 Outpatient YNES CARROLL III [facility] [id number] [facility] 2022-05-04 09:00:00 2022-05-04 09:38:49 Urgent Care Ynes Napier Unknown, Attending [facility] [id number] [id number] [id number] [facility] 2022-05-04 00:00:00 2022-05-04 00:00:00 Orders Only Doctor Unassigned, [place] [facility] [id number] [id number] [id number] [id number] [facility] 2021-02-03 09:20:54 2021-02-03 09:40:54 [facility] [id number] [id number] [id number] [facility] 2021-02-03 09:40:00 2021-02-03 09:40:00 Outpatient JAN MISHRATANY [facility] [id number] [facility] 2020-10-28 18:30:00 2020-10-28 19:52:00 Emergency X KATHLEEN SANDOVAL [facility] ERT [id number] [facility] 2020-10-28 18:30:00 2020-10-28 19:52:00 Emergency Kathleen Sandoval [facility] [id number] [id number] [id number] [id number] [facility] 2020-10-02 08:25:00 2020-10-02 10:26:00 Emergency Harshal Thomas [facility] [id number] [id number] 4.2.7.2.686 [id number] [facility] 2020-10-02 08:18:00 2020-10-02 08:18:00 Emergency X [facility] ERT [id number] [facility] 2020-10-02 00:00:00 2020-10-02 00:00:00 Patient Secure Msg Doctor Unassigned, [place] [facility] [id number] [id number] [id number] [id number] [facility] Results Test Description Test Time Test Comments Results Result Co mments Source [facility] [id number] 15:21:03* Test Item Value Reference Range Interpretation Comme nts POCT Molecular Strep (test c ode = 80280-3) Negative Negative Lab Interpretation (test cod e = 38932-0) Normal [facility] [id number] 00:20:32* Test Item Value Reference Range Interpretation Comme nts TROPONIN I (test code = 4750535654) 0.000 ng/mL See_Comment [Automated message] The system which generated this result transmitted reference range: <=0.034. The reference range was not used to interpret this result as normal/abnormal. HERVE (test code = HERVE) Equal or Less than 0.034 ng/ml---Normal ?Note: Cardiac troponin begins to rise 3-4 hours after the onset of ischemia. Repeat in 4-6 hours if the sample was drawn within 3-4 hours of the onset of the symptom and found normal. Between 0.035 and 0.120 ng/mL--- Borderline. Questionable myocardial injury or necrosis ? ?Note: Serial measurement may be necessary to confirm or exclude the diagnosis of myocardial injury or necrosis; Clinical correlation (symptoms, EKGs, imaging studies, and others) required; Repeat in 4-6 hours if clinically indicated. ? Equal or Higher than 0.121 ng/mL---Abnormal. Myocardial Injury or Necrosis Likely ? Biotin has been reported to cause a negative bias, interpret results relative to patient's use of biotin. ? Lab Interpretation (test code = 05842-8) Normal [facility] Met[facility] (NA, K, CL, CO2, GLUCOSE, BUN, CREATININE, CA)2020-10-29 00:08:34* Test Item Value Reference Range Interpretation Comme nts NA (test code = 9127915360) 139 mmol/L 135-145 K (test code = 0439527902) 4.1 mmol/L 3.5-5.0 CL (test code = 7585568044) 106 mmol/L 98-108 CO2 TOTAL (test code = 1009270514) 24 mmol/L 23-31 AGAP (test code = 1501360614) 2-16 BUN (test code = 1845049584) 16 mg/dL 7-23 GLUCOSE (test code = 9387215968) 106 mg/dL 70-110 CREATININE (test code = 5701686501) 0.88 mg/dL 0.50-1.04 CALCIUM (test code = 2281369747) 9.7 mg/dL 8.6-10.6 eGFR (test code = 2181722803) mL/min/1.73m2 HERVE (test code = HERVE) Association of Glomerular Filtration Rate (GFR) and Staging of Kidney Disease* + + +- +| GFR (mL/min/1.73 m2) ?| With Kidney Damage ?| ?Without Kidney Damage+ ------+ ----+ ------+| ?>90 ?| ?Stage one ?| ? Normal ?+ -+ + -+| ?60-89 ?| ?Stage two ?| ? Decreased GFR ? + + +- +| ?30-59 ?| ?Stage three ?| ? Stage three ? + + +- +| ?15-29 ?| ?Stage four ? | ? Stage four ?+ -+ + -+| ?<15 (or dialysis) ? ?| ?Stage five ? | ? Stage five ?+ -+ + -+ *Each stage assumes the associated GFR level has been in effect for at least three months. ?Stages 1 to 5, with or without kidney disease, indicate chronic kidney disease. Notes: Determination of stages one and two (with eGFR >59mL/min/1.73 m2) requires estimation of kidney damage for at least three months as defined by structural or functional abnormalities of the kidney, manifested by either:Pathological abnormalities or Markers of kidney damage (including abnormalities in the composition of the blood or urine or abnormalities in imaging tests). [facility] with [id number] 23:57:32* Test Item Value Reference Range Interpretation Comme nts WBC (test code = 6690-2) See_Comment [[employer]] The system which generated this result transmitted reference range: 4.30 - 11.10 10*3/?L. The reference range was not used to interpret this result as normal/abnormal. RBC (test code = 789-8) See_Comment [[employer]] The system which generated this result transmitted reference range: 3.93 - 5.25 10*6/?L. The reference range was not used to interpret this result as normal/abnormal. HGB (test code = 718-7) 12.7 g/dL 11.6-15.0 HCT (test code = 4544-3) 39.3 % 35.7-45.2 MCV (test code = 787-2) 82.6 fL 80.6-95.5 MCH (test code = 785-6) 26.7 pg 25.9-32.8 MCHC (test code = 786-4) 32.3 g/dL 31.6-35.1 RDW-SD (test code = 51441-7) 40.5 fL 39.0-49.9 RDW-CV (test code = 788-0) 13.5 % 12.0-15.5 PLT (test code = 777-3) See_Comment H [Automated messa ge] The system which generated this result transmitted reference range: 166 - 358 10*3/?L. The reference range was not used to interpret this result as normal/abnormal. MPV (test code = 20660-6) 9.9 fL 9.5-12.9 NRBC/100 WBC (test code = 3706130643) See_Comment [Automated me ssage] The system which generated this result transmitted reference range: 0.0 - 10.0 /100 WBCs. The reference range was not used to interpret this result as normal/abnormal. NRBC x10^3 (test code = 1285471638) <0.01 See_Comment [Automated messa ge] The system which generated this result transmitted reference range: 10*3/?L. The reference range was not used to interpret this result as normal/abnormal. GRAN MAT (NEUT) % (test code = 770-8) 70.9 % IMM GRAN % (test code = 2197460990) 0.50 % LYMPH % (test code = 736-9) 20.1 % MONO % (test code = 5905-5) 7.2 % EOS % (test code = 713-8) 0.8 % BASO % (test code = 706-2) 0.5 % GRAN MAT x10^3(ANC) (test code = 0824524877) 7.55 10*3/uL 1.88-7.09 H IMM GRAN x10^3 (test code = 6237080088) 0.05 10*3/uL 0.00-0.06 LYMPH x10^3 (test code = 731-0) 2.14 10*3/uL 1.32-3.29 MONO x10^3 (test code = 742-7) 0.77 10*3/uL 0.33-0.92 EOS x10^3 (test code = 711-2) 0.08 10*3/uL 0.03-0.39 BASO x10^3 (test code = 704-7) 0.05 10*3/uL 0.01-0.07 Lab Interpretation (test code = 22796-1) Abnormal [facility] ONLY - INFLUENZA A & B DIRECT [id number] 14:58:50* Test Item Value Reference Range Interpretation Comme nts Influenza A (test code = 31163-8) Negative Negative Influenza B (test code = 11192-8) Negative Negative Lab Interpretation (test cod e = 23600-1) Normal [facility]OVID[facility] (ID NOW RAPID TESTING)2020-10-02 14:52:17* Test Item Value Reference Range Interpretation Comme nts SARS-CoV-2 Rapid ID NOW (test code = 78922-2) Not Detected Not Detected HERVE (test code = HERVE) ID NOW COVID-19 As say is an isothermal nucleic acid amplification test intended for the qualitative detection of nucleic acid from SARS-CoV-2 viral RNA in nasopharyngeal (SCIENTIST IMMUNOLOGY) specimens. It is used under Emergency Use Authorization (EUA) by FDA. The limit of detection (LOD) of the assay is 125 Genome Equivalents/mL. A positive result is indicative of the presence of SARS-CoV-2 RNA. ?Clinical correlation with patient history and other diagnostic information is necessary to determine patient infection status. A negative (Not Detected) result does not preclude SARS-CoV-2 infection. In patients with clinical symptoms and other tests that are consistent with SARS-CoV-2 infection, negative results should be treated as presumptive negative and a new specimen should be tested with alternative PCR molecular test. Invalid: Please collect a new specimen for repeat patient testing if clinically indicated. Lab Interpretation (test code = 22037-4) Normal [facility] 2 [id number] 14:28:54No acute cardiopulmonary abnormality. Preliminary Report Dictated by Resident: Eloy Peters I, Martinez Chambers MD., have reviewed this study and agree with theabove report.EXAM: XR CHEST 2 VW HISTORY: 45 years-old Female; cough for 5 hours TECHNIQUE: Frontal and lateral views of the chest. COMPARISON: None FINDINGS: Lungs are moderately well expanded and clear. No focal consolidation,pleural effusion, or pneumothorax is visualized. The cardiomediastinal silhouette is normal. No acute osseous abnormality is present. [facility], Radiant Results Inft User - 10/02/2020 9:30 AM CDTEXAM: XR CHEST 2 VW HISTORY: 45 years-old Female; cough for 5 hoursTECHNIQUE: Frontal and lateral views of the chest.COMPARISON: NoneFINDINGS:Lungs are moderately well expanded and clear. No focal consolidation,pleural effusion, or pneumothorax is visualized. The cardiomediastinal silhouette is normal. No acute osseous abnormality is present. IMPRESSIONNo acute cardiopulmonary abnormality.Preliminary Report Dictatedby Resident: Eloy Levi, Martinez Mayo MD., have reviewed this study and agree with theabove report. [facility] CORDELL CAD [id number] 15:21:06- SCR MAMM BILATERAL CORDELL CAD DIGITALBILATERAL FIRST EVER DIGITAL SCREENING MAMMOGRAM 3D/2D WITH CAD: 10/22/2018CLINICAL: Asymptomatic. Digital breast tomosynthesis was performed in addition to routine CC and MLO views. Current mammographic images were evaluated by either a [employer] M-Vu or a [employer] ImageYamsaferer CAD (computer aided detection system). No prior [...] tissue, in and of itself, is a relativelycommon condition. Therefore, this information is not provided to cause undue concern, but rather toraise awareness and to promote discussion regarding the presence of other risk factors, in additionto dense breast tissue.Kevin Mcpherson M.D. rb/:10/23/2018 15:21:06 Shoe Stitcher Odd: Luna Urias , [facility] Mammographyletter sent: BIRADS 1-2 Normal Mammogram BI-RADS: 1 Negative"
[2024-03-16] MEDS ORDERED: KETOROLAC 30 MG/ML INJ ONE (07:39)
[2024-03-16] MEDS ORDERED: MORPHINE 4 MG/ML SYR ONE (07:40)
[2024-03-16] MEDS ORDERED: NA CHLORIDE 0.9% 1,000 ML ONE (07:40)
[2024-03-16] MEDS ORDERED: ONDANSETRON 4 MG/2 ML VIAL ONE ×3 (07:40→19:21)
[2024-03-16 07:44] LABS: Absolute Lymphocytes (CBC) 0.5 K/uL (0.7-4.9); Absolute Monocytes 0.3 K/uL (0.1-1.3); Absolute Neutrophil 6.5 K/uL (1.8-8.0); Basophils % 0.2 % (0-1.3); Eosinophils % 0.1 % (0-4.4); Hematocrit 38.5 % (36.0-45.0); Lymphocytes % 7.4 % (15.3-44.8); MCH 28.6 pg (27.0-35.0); MCHC 33.7 g/dL (32.0-36.0); MPV 7.1 fL (7.6-11.3); Monocytes % 4.5 % (3.3-12.3); Neutrophils % 87.8 % (41.7-73.7); Nucleated Red Blood Cells % 0.1 % (0-0); Platelets 328 thou/uL (152-406); RBC Red Blood Cell Count 4.53 M/uL (3.86-4.86); Red Cell Distribution Width 12.8 % (12.1-15.2)
[2024-03-16 08:01] LABS: ALT/SGPT 18 U/L (13-56); AST/SGOT 11 U/L (15-37); Albumin 3.2 g/dL (3.4-5.0); Albumin/Globulin Ratio 0.8 (1.1-1.8); Alkaline Phosphatase 56 U/L (45-117); Anion Gap 6.9 mEq/L (5.0-15.0); BUN Blood Urea Nitrogen 14 mg/dL (7-18); Bicarbonate 28 mEq/L (21-32); Bilirubin Direct < 0.2 mg/dL (0-0.2); Bilirubin Indirect, Calculated 0.3 mg/dL (0.2-0.8); Bilirubin Total 0.5 mg/dL (0.2-1.0); Globulin 3.8 g/dL (2.3-3.5); Glomerular Filtration Rate 102 ml/min (=/>90); Glucose Level 114 mg/dL (74-106); Potassium 3.9 mEq/L (3.5-5.1); Sodium Level 136 mEq/L (136-145); Troponin High Sensitivity 5.5 pg/mL (<58.9)
[2024-03-16 08:29] LABS: Blood Morphology Comment NOT SEEN (NOT SEEN); Platelet Estimate ADEQ; White Blood Cell Scan OK (OK)
--- NOTE | 2024-03-16 08:35 | RAD REPORT ---
EXAMINATION: CT ABDOMEN AND PELVIS WITH CONTRAST CLINICAL INDICATION: Abdominal pain TECHNIQUE: CT abdomen and pelvis was performed, after the administration of 100 cc Isovue-300.. Sagit tevin and coronal reconstructions were obtained. One or more of the following dose reduction techniques were used: Automated exposure control, adjustment of the mA and kV according to patient si ze, and iterative reconstruction. Unless otherwise specified, incidental findings do not require dedicated imaging follow-up. [id number]. Oral contrast was not given which limits evaluation of bowel and appendix. COMPARISON: 2019 FINDINGS: 3.3 cm gallstone. Gallbladder wall not thickened. The liver, spleen, pancreas, adrenals and kidneys unremarkable. The appendix extends inferiorly from the cecum. Mild enlargement of the distal appendix is present. T here is no stranding within the adjacent fat. No adnexal mass. No evidence of diverticulitis. : IMPRESSION: Mild enlargement of the distal appendix may indicate early appendicitis. Cholelithiasis without evidence of cholecystitis
--- NOTE | 2024-03-16 09:49 | EDPHYS ---
Physician Documentation [facility] Name: Kadie George Age: 48 yrs Sex: Female : 1975 Arrival Date: 03/16/2024 Time: 06:24 Bed 19 Private MD: ED Physician Roberto Celaay HPI: 03/16 13:55 This 48 yrs old Female presents to ER via Ambulatory with complaints of Abdominal Pain, rt Nausea/Vomiting. 13:55 Patient presents to the ED with right-sided abdominal pain, nausea, vomiting, diarrhea rt for about 2 days. Patient states that the symptoms have worsened today. Denies other acute complaints at this time, symptoms are moderate in severity, no other aggravating or alleviating factors.. 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 - Infectious Disease History:: Denies. - Social history:: Smoking status: Patient denies any tobacco usage or history of. - Family history:: not pertinent. ROS: 13:55 Constitutional: Negative for fever, chills, and weight loss, Cardiovascular: Negative rt for chest pain, palpitations, and edema, Respiratory: Negative for shortness of breath, cough, wheezing, and pleuritic chest pain, MS/Extremity: Negative for injury and deformity, Skin: Negative for injury, rash, and discoloration, Neuro: Negative for headache, weakness, numbness, tingling, and seizure, 13:55 Abdomen/GI: Positive for abdominal pain, nausea, vomiting, and diarrhea, Exam: 13:55 Constitutional: This is a well developed, well nourished patient who is awake, alert, rt and in no acute distress. Head/Face: Normocephalic, atraumatic. Chest/axilla: Normal chest wall appearance and motion. Nontender with no deformity. No lesions are appreciated. Cardiovascular: Regular rate and rhythm with a normal S1 and S2. No gallops, murmurs, or rubs. Normal PMI, no JVD. No pulse deficits. Respiratory: Lungs have equal breath sounds bilaterally, clear to auscultation and percussion. No rales, rhonchi or wheezes noted. No increased work of breathing, no retractions or nasal flaring. Skin: Warm, dry with normal turgor. Normal color with no rashes, no lesions, and no evidence of cellulitis. MS/ Extremity: Pulses equal, no cyanosis. Neurovascular intact. Full, normal range of motion. Neuro: Awake and alert, GCS 15, oriented to person, place, time, and situation. Cranial nerves II-XII grossly intact. Motor strength 5/5 in all extremities. Sensory grossly intact. Cerebellar exam normal. Normal gait. 13:55 Abdomen/GI: Tenderness to the right upper quadrant without guarding, rebound, distention, Vital Signs: 06:58 BP 147 / 85; Pulse 100; Resp 20; Temp 98.9; Pulse Ox 98% ; Weight 161 kg; Height 5 ft. vc1 5 in. ; Pain 7/10; 09:12 BP 157 / 95; Pulse 76; Resp 16; Pulse Ox 100% on R/A; ap3 12:09 BP 141 / 72; Pulse 71; Pulse Ox 100% on R/A; Pain 7/10; tm6 06:58 Body Mass Index 59.07 (161.00 kg, 165.1 cm) vc1 06:58 Pain Scale: Adult vc1 12:09 Pain Scale: Adult tm6 MDM: 07:06 Medical Screening Exam initiated rt 13:55 Differential diagnosis: Appendicitis, cholecystitis, gastroenteritis. Data reviewed: rt vital signs, nurses notes, lab test result(s), radiologic studies. Consideration of Admission/Observation Patient was admitted/placed on observation. Management of patient was discussed with the following: Film Archivist: Discussed with Dr. Concepcion, recommends treat with antibiotics, will watch in the hospital.. I considered the following discharge prescriptions or medication management in the emergency department Medications were administered in the Emergency Department. See MAR. Independent interpretation of the following test(s) in the Emergency Department CT Scan: My interpretation is No bowel obstruction seen on my interpretation of CT scan images. Counseling: I had a detailed discussion with the patient and/or guardian regarding the historical points, exam findings, and any diagnostic results supporting the discharge/admit diagnosis, lab results, radiology results, the need for further work-up and treatment in the hospital. Response to treatment: the patient's symptoms have markedly improved after treatment. 03/16 07:14 Order name: Basic Metabolic Panel; Complete Time: 08:11 rt 03/16 07:14 Order name: CBC with Diff; Complete Time: 08:33 rt 03/16 07:14 Order name: LFT's; Complete Time: 08:11 rt 03/16 07:14 Order name: Troponin HS; Complete Time: 08:11 rt 03/16 08:29 Order name: CBC Smear Scan; Complete Time: 08:33 EDMS 03/16 12:15 Order name: CBC with Automated Diff EDMS 03/16 12:15 Order name: CBC with Automated Diff EDMS 03/16 12:15 Order name: Comprehensive Metabolic Panel EDMS 03/16 12:15 Order name: Comprehensive Metabolic Panel EDMS 03/16 12:16 Order name: Protime (+INR) EDMS 03/16 12:16 Order name: PTT, Activated Partial Thromb EDMS 03/16 07:17 Order name: CT Abd/Pelvis - IV Contrast Only; Complete Time: 08:52 rt 03/16 07:14 Order name: EKG; Complete Time: 07:14 rt 03/16 12:15 Order name: CONS Physician Consult EDMS 03/16 07:14 Order name: IV Saline Lock; Complete Time: 07:34 rt 03/16 07:14 Order name: Labs collected and sent; Complete Time: 07:34 rt 03/16 07:14 Order name: O2 Per Protocol; Complete Time: 07:18 rt 03/16 07:14 Order name: O2 Sat Monitoring; Complete Time: 07:18 rt 03/16 07:17 Order name: IV Saline Lock; Complete Time: 07:34 rt 03/16 07:17 Order name: Labs collected and sent; Complete Time: 07:34 rt Administered Medications: 07:45 Not Given (Duplicate Order): [id number] mg IVP once ap3 08:03 Drug: TORadol - Ketorolac IVP 15 mg IVP once Route: IVP; Site: right antecubital; ap3 09:13 Follow up: Response: No adverse reaction; Pain is decreased ap3 08:03 Drug: Ondansetron IVP 4 mg IVP once; over 2 minutes Route: IVP; Site: right antecubital;ap3 09:13 Follow up: Response: No adverse reaction; Nausea is decreased ap3 08:03 Drug: morphine IVP or IV 4 mg IVP once over 4 mins Route: IVP; Infused Over: 4 mins; ap3 Site: right antecubital; 09:13 Follow up: Response: No adverse reaction; Pain is decreased ap3 08:03 Drug: NS 0.9% IV 1000 ml IV at 1 bolus Per protocol; to be given as a bolus over 60 ap3 minutes Route: IV; Rate: 1 bolus; Site: right antecubital; 13:30 Follow up: Response: No adverse reaction; IV Status: Completed infusion; IV Intake: tm6 1000ml 10:25 Drug: Piperacillin-Tazobactam IVPB 3.375 grams IVPB once over 60 mins; (mix in NS 100 tm6 mL) Route: IVPB; Infused Over: 60 mins; Site: right antecubital; 13:30 Follow up: Response: No adverse reaction; IV Status: Completed infusion; IV Intake: tm6 100ml Disposition Summary: 03/16/24 09:48 Hospitalization Ordered Notes: Hospitalization Status: Observation rt Provider: Mary Lou Salas rt Condition: Stable rt Problem: new rt Symptoms: have improved rt Bed/Room Type: Standard rt Location: Telemetry/MedSurg (observation)(03/16/24 18:43) Room Assignment: 416(03/16/24 19:30) ap3 Diagnosis - Abdominal pain, unspecified rt Forms: - Medication Reconciliation Form rt - SBAR form rt - Leadership Thank You Letter rt Signatures: Dispatcher [employer] EDMS Alessia Horan bd Michelle Art RN RN iw Prokisch, Amanda RN RN ap3 Oksana De La Fuente RN RN vc1 Christa Warner RN RN kb3 Roberto Celaya MD MD rt Nilda Perez RN RN tm6 Corrections: (The following items were deleted from the chart) 07:17 07:14 EKG - Nurse/Tech ordered. rt ap3 07:17 07:14 Chest Single View+RAD.RAD.BRZ ordered. EDMS EDMS 08:11 07:18 CBC+H.LAB.BRZ ordered. EDMS EDMS 08:11 07:18 COMPREHENSIVE METABOLIC PANEL+C.LAB.BRZ ordered. EDMS EDMS 08:11 07:18 LIPASE+C.LAB.BRZ ordered. EDMS EDMS 08:22 07:14 Cardiac monitoring ordered. rt ap3 14:01 09:48 Telemetry/MedSurg (observation) rt kb3 14:01 09:48 rt kb3 16:39 14:01 [facility] ER HOLD kb3 bd 16:39 14:01 ERHOLD- kb3 bd 17:36 16:39 Telemetry/MedSurg (observation) bd iw 17:36 16:39 406 bd iw 18:33 17:36 [facility] ER HOLD iw bd 18:33 17:36 ERHOLD- iw bd 18:37 18:33 Telemetry/MedSurg (observation) bd iw 18:37 18:33 406 bd iw 18:43 18:37 [facility] ER HOLD iw bd 18:43 18:37 ERHOLD- iw bd 19:30 18:43 406 bd ap3
--- NOTE | 2024-03-16 09:49 | ER ---
Nurse's Notes [facility] Name: Kadie George Age: 48 yrs Sex: Female : 1975 Arrival Date: 03/16/2024 Time: 06:24 Bed 19 Private MD: Diagnosis: Abdominal pain, unspecified Presentation: 03/16 06:58 Chief complaint: Patient states: vomiting and diarrhea for 24 hours. Coronavirus vc1 screen: Client denies travel out of the [place] in the last 14 days. At this time, the client does not indicate any symptoms associated with coronavirus-19. Ebola Screen: Patient negative for fever greater than or equal to 101.5 degrees Fahrenheit, and additional compatible Ebola Virus Disease symptoms Patient denies exposure to infectious person. Patient denies travel to an Ebola-affected area in the 21 days before illness onset. No symptoms or risks identified at this time. Initial Sepsis Screen: Does the patient meet any 2 criteria? No. Patient's initial sepsis screen is negative. Does the patient have a suspected source of infection? No. Patient's initial sepsis screen is negative. Risk Assessment: Do you want to hurt yourself or someone else? Patient reports no desire to harm self or others. Onset of symptoms was March 15, 2024. 06:58 Method Of Arrival: Ambulatory vc1 06:58 Acuity: GIOVANI 3 vc1 Triage Assessment: 07:00 General: Appears in no apparent distress. uncomfortable, ill, obese, Behavior is calm, vc1 cooperative, appropriate for age. Pain: Complains of pain in umbilical area, right lower quadrant and left lower quadrant Pain does not radiate. Pain currently is 7 out of 10 on a pain scale. Also complains of nausea. Neuro: Level of Consciousness is awake, alert, obeys commands, Oriented to person, place, time, situation, Appropriate for age. Respiratory: Airway is patent Respiratory effort is even, unlabored, Respiratory pattern is regular, symmetrical. GI: Abdomen is round non-distended, Reports diarrhea, nausea, vomiting. 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 - Infectious Disease History:: Denies. - Social history:: Smoking status: Patient denies any tobacco usage or history of. - Family history:: not pertinent. Screenin:08 [facility] ED Fall Risk Assessment (Adult) History of falling in the last 3 months, tm6 including since admission No falls in past 3 months (0 pts) Confusion or Disorientation No (0 pts) Intoxicated or Sedated No (0 pts) Impaired Gait No (0 pts) Mobility Assist Device Used No (0 pt) Altered Elimination No (0 pt) Score/Fall Risk Level 0 - 2 = Low Risk Oriented to surroundings, Maintained a safe environment, Educated pt \T\ family on fall prevention, incl call for assistance when getting out of bed. Abuse screen: Denies threats or abuse. Denies injuries from another. Nutritional screening: No deficits noted. Tuberculosis screening: No symptoms or risk factors identified. Assessment: 09:24 Reassessment: Patient and/or family updated on plan of care and expected duration. Pain ap3 level reassessed. Patient is alert, oriented x 3, equal unlabored respirations, skin warm/dry/pink. General: Appears comfortable, Behavior is calm, cooperative, appropriate for age. Pain: Complains of pain in abdomen. GI: Reports nausea. 20:02 Reassessment: attempted to notify 4th we were bringing patient up, no answer. tm6 Vital Signs: 06:58 BP 147 / 85; Pulse 100; Resp 20; Temp 98.9; Pulse Ox 98% ; Weight 161 kg; Height 5 ft. vc1 5 in. ; Pain 7/10; 09:12 BP 157 / 95; Pulse 76; Resp 16; Pulse Ox 100% on R/A; ap3 12:09 BP 141 / 72; Pulse 71; Pulse Ox 100% on R/A; Pain 7/10; tm6 06:58 Body Mass Index 59.07 (161.00 kg, 165.1 cm) vc1 06:58 Pain Scale: Adult vc1 12:09 Pain Scale: Adult tm6 ED Course: 06:26 Patient arrived in ED. jj6 06:58 Roberto Celaya MD is Attending Physician. rt 06:59 Triage completed. vc1 07:00 Arm band placed on right wrist. vc1 07:01 Patient has correct armband on for positive identification. Bed in low position. Call vc1 light in reach. Pulse ox on. NIBP on. 07:34 Inserted saline lock: 22 gauge in right antecubital area, using aseptic technique. ap3 Blood collected. 07:45 Lidia Dawson RN is Primary Nurse. ap3 08:21 CT Abd/Pelvis - IV Contrast Only In Process Unspecified. EDMS 09:48 Mary Lou Salas MD is Hospitalizing Provider. rt 12:08 Provided Education on: wait time for med surg room. tm6 13:29 No provider procedures requiring assistance completed. Patient admitted, IV remains in tm6 place. Administered Medications: 07:45 Not Given (Duplicate Order): mg IVP once ap3 08:03 Drug: TORadol - Ketorolac IVP 15 mg IVP once Route: IVP; Site: right antecubital; ap3 09:13 Follow up: Response: No adverse reaction; Pain is decreased ap3 08:03 Drug: Ondansetron IVP 4 mg IVP once; over 2 minutes Route: IVP; Site: right antecubital;ap3 09:13 Follow up: Response: No adverse reaction; Nausea is decreased ap3 08:03 Drug: morphine IVP or IV 4 mg IVP once over 4 mins Route: IVP; Infused Over: 4 mins; ap3 Site: right antecubital; 09:13 Follow up: Response: No adverse reaction; Pain is decreased ap3 08:03 Drug: NS 0.9% IV 1000 ml IV at 1 bolus Per protocol; to be given as a bolus over 60 ap3 minutes Route: IV; Rate: 1 bolus; Site: right antecubital; 13:30 Follow up: Response: No adverse reaction; IV Status: Completed infusion; IV Intake: tm6 1000ml 10:25 Drug: Piperacillin-Tazobactam IVPB 3.375 grams IVPB once over 60 mins; (mix in NS 100 tm6 mL) Route: IVPB; Infused Over: 60 mins; Site: right antecubital; 13:30 Follow up: Response: No adverse reaction; IV Status: Completed infusion; IV Intake: tm6 100ml Medication: 13:30 VIS not applicable for this client. tm6 Intake: 13:30 IV: 100ml; Total: 100ml. tm6 13:30 IV: 1000ml; Total: 1100ml. tm6 Outcome: 09:48 Decision to Hospitalize by Provider. rt 13:29 Admitted to ER Hold. Please see [facility] for further documentation. tm6 13:29 Condition: stable 13:29 Instructed on the need for admit, 20:03 Patient left the ED. tm6 Signatures: Dispatcher [employer] EDLidia Shoemaker, RN RN ap3 Ceci Rosasj6 Oksana De La Fuente RN RN vc1 Roberto Celaya MD MD rt Nilda Perez RN RN tm6
[2024-03-16] MEDS ORDERED: NA CHLORIDE 0.9% 100 ML ONE ×2 (09:52→18:09)
[2024-03-16] MEDS ORDERED: PIPERACIL/TAZO 3.375 GM VIAL IV ONE ×2 (09:53→18:09)
--- NOTE | 2024-03-16 12:19 | P.HP ---
Certification for Inpatient Patient admitted to: Observation With expected LOS: <2 Midnights Patient will require the following post-hospital care: None Practitioner: I am a practitioner with admitting privileges, knowledge of patient current condition, hospital course, and medical plan of care. Services: Services provided to patient in accordance with Admission requirements found in Title 42 Section 412.3 of the Code of Federal Regulations Patient History Date of Service: 03/16/24 Reason for admission: Acute appendicitis History of Present Illness: Patient is a 48-year-old female came to the hospital with abdominal pain. Patient was having some tenderness in the right lower quadrant so she decided to come in as it was not improving and she had persistent nausea and vomiting. In the emergency room patient had CT imaging which showed acute appendicitis and general surgery was consulted. Patient will be admitted to the hospital for observation. Will keep n.p.o. after midnight for laparoscopic appendectomy and possible discharge home afterwards. Allergies No Known Allergies Allergy (Verified 12/16/19 11:03) Home Medications: NK [No Home Meds] 02/16/19 - Past Medical/Surgical History Past Medical History: Patient denies medical history Past Surgical History: Patient denies surgical history - Family History Father Family History: Reviewed- Non-Contributory - Social History Smoking Status: Former smoker Alcohol use: No CD- Drugs: No Review of Systems 10-point ROS is otherwise unremarkable Physical Examination - Vital Signs Temperature: 98 F Blood Pressure: 140/81 Pulse: 80 Respirations: 19 Pulse Ox (%): 98 - Physical Exam General: Alert, In no apparent distress, Oriented x3 HEENT: Atraumatic, PERRLA, Mucous membr. moist/pink, EOMI, Sclerae nonicteric Neck: Supple, 2+ carotid pulse no bruit, No LAD, Without JVD or thyroid abnormality Respiratory: Clear to auscultation bilaterally, Normal air movement Cardiovascular: Regular rate/rhythm, Normal S1 S2, No murmurs Gastrointestinal: Normal bowel sounds, Soft and benign, Non-distended, No rebound, No guarding, Tenderness Musculoskeletal: No clubbing, No swelling, No tenderness - Studies Laboratory Data (last 24 hrs) 03/16/24 03/16/24 03/16/24 07:31 07:31 07:17 WBC 7.40 Hgb 13.0 Hct 38.5 Plt Count 328 Sodium 136 Cancelled Potassium 3.9 Cancelled BUN 14 Cancelled Creatinine 0.73 Cancelled Glucose 114 H Cancelled Total Bilirubin 0.5 Cancelled AST 11 L Cancelled ALT 18 Cancelled Alkaline Phosphatase 56 Cancelled Lipase Cancelled 03/16/24 07:17 WBC Cancelled Hgb Cancelled Hct Cancelled Plt Count Cancelled Sodium Potassium BUN Creatinine Glucose Total Bilirubin AST ALT Alkaline Phosphatase Lipase Assessment & Plan - Problems (Diagnosis) (1) Acute appendicitis Current Visit: Yes Status: Acute - Plan -management per surgery -DVT prophylaxis -IV hydration and IV antibiotics -NPO -strict blood pressure -monitor electrolytes and blood count closely -pain control Discharge Plan: Other - Advance Directives Does patient have a Living Will: No Does patient have a Durable POA for Healthcare: No - Code Status/Comfort Care Code Status Assessed: Yes Code Status: Full Code Critical Care: No Time Spent Managing PTS Care (In Minutes): 35
[2024-03-16] MEDS ORDERED: MORPHINE 2 MG/ML SYR ONE ×2 (12:27→19:22)
--- NOTE | 2024-03-16 12:29 | CON ---
Date of Consultation: 03/16/2024 Reason For Consultation: Abdominal pain. History Of Present Illness: The patient is a 48-year-old female who presented to the emergency room with acute onset of abdominal pain located in the epigastrium and tender on the right side. The ashanti ent had vomiting and diarrhea for 24 hours. No blood in her stools. No dysuria or hematuria. Some nausea. No sore throat, runny nose, cough, headaches, or dizziness. No chest pain. No fevers or ch ills. Slightly, anorexic. Review of Systems: Otherwise, unremarkable. Past Medical History: Anxiety, obesity. Past Surgical History: Total abdominal hysterectomy. Allergies: NO ALLERGIES. Social History: The patient does not smoke. Family History: Noncontributory. Physical Examination: Vital Signs: Stable. She is afebrile. Her weight is 161 kg and height is 5 feet 5 inches. General: She is awake, alert, oriented x3. Head and Neck: No masses. Chest: Clear. Heart: S1, S2. Abdomen: Soft, nondistended, positive bowel sounds. Mild right lower quadrant and right middle quad rant tenderness. No rebound. No rigidity. No guarding. Extremities: Adequately perfused. Nontender. Neuro: Nonfocal. Laboratory Data: Shows white count to be 7.4, there is a slight left shift. Chemistry reviewed. Gl ucose is slightly high, otherwise unremarkable. CT of the abdomen and pelvis reviewed with the radio logist. It shows a 3.3 cm gallstone. Gallbladder wall is not thickened. The appendix extends infer iorly from the cecum. Mild enlargement of the distal appendix is present. There is no stranding wit hin the adjacent fat. Impression was mild enlargement of the distal appendix. May indicate early ap pendicitis, cholelithiasis without evidence of cholecystitis. Assessment: 48-year-old female with abdominal pain, etiology could be the appendix, could be chronic cholelithiasis and cholecystitis with biliary colic. Recommendations: At this point, patient is very nervous about any type of intervention. As this is a borderline case for appendicitis, I would recommend admitting the patient, doing serial abdominal e xams, IV antibiotics, and we will try medical treatment for possible appendicitis. The patient would be moderate to high risk for surgery given her weight. Therefore, I think medical management is paty ropriate in the initial treatment plan. Should that not succeed, obviously we can always intervene s urgically, if needed. Plan of care discussed in detail with the patient and family and the ER staff. CELSO/FAMILIA Voice ID: [id number] Report ID: [id number]
[2024-03-16] MEDS: ONDANSETRON 4 MG/2 ML VIAL IV PRN (12:40)
[2024-03-16] MEDS: NA CHLORIDE 0.9% 1,000 ML IV SCH (12:40)
[2024-03-16] MEDS: MORPHINE 2 MG/ML SYR IV PRN (12:40)
[2024-03-16 13:22] VITALS: BMI 58.8
[2024-03-16] MEDS: PIPER TAZO 3.375 GM in NA CHLORIDE 0.9% 100 ML IV SCH (17:00)
[2024-03-17 06:54] LABS: Absolute Eosinophils 0.1 K/uL (0-0.5); Absolute Lymphocytes (CBC) 1.2 K/uL (0.7-4.9); Absolute Monocytes 0.5 K/uL (0.1-1.3); Absolute Neutrophil 3.2 K/uL (1.8-8.0); Basophils % 0.6 % (0-1.3); Eosinophils % 1.7 % (0-4.4); Hematocrit 36.2 % (36.0-45.0); Hemoglobin 12.1 g/dL (12.0-15.0); Lymphocytes % 23.4 % (15.3-44.8); MCH 28.7 pg (27.0-35.0); MCHC 33.6 g/dL (32.0-36.0); MCV 85.5 fL (80-100); MPV 7.5 fL (7.6-11.3); Monocytes % 10.8 % (3.3-12.3); Neutrophils % 63.5 % (41.7-73.7); Nucleated Red Blood Cells % 0.1 % (0-0); Platelets 283 thou/uL (152-406); RBC Red Blood Cell Count 4.23 M/uL (3.86-4.86); Red Cell Distribution Width 12.6 % (12.1-15.2)
[2024-03-17 07:01] LABS: PT Prothrombin Time 12.4 SECONDS (9.4-12.5); PTT, Activated Partial Thromb 31.8 SECONDS (24.3-36.9); Protime INR 1.11
[2024-03-17 07:07] LABS: Albumin 2.6 g/dL (3.4-5.0); Albumin/Globulin Ratio 0.7 (1.1-1.8); Anion Gap 5.9 mEq/L (5.0-15.0); Bilirubin Total 0.3 mg/dL (0.2-1.0); Globulin 3.5 g/dL (2.3-3.5); Potassium 3.9 mEq/L (3.5-5.1); Protein, Total 6.1 g/dL (6.4-8.2)
[2024-03-17] MEDS ORDERED: FENTANYL CITR 100 MCG/2 ML ONE ×2 (11:02→12:17)
[2024-03-17] MEDS ORDERED: NEOSTIGMINE 1 MG/ML -10 ML VIAL ONE (11:02)
[2024-03-17] MEDS ORDERED: propofoL 200 MG/20 ML VIAL IV ONE (11:02)
[2024-03-17] MEDS ORDERED: ONDANSETRON 4 MG/2 ML VIAL ONE (11:02)
[2024-03-17] MEDS ORDERED: ROCURONIUM 50 MG/5 ML VIAL IV ONE (11:02)
[2024-03-17] MEDS ORDERED: GLYCOPYRROLATE 0.2 MG/ML SYR ONE (11:02)
[2024-03-17] MEDS ORDERED: LIDOCAINE 2% MPF 5 ML VIAL ONE (11:02)
[2024-03-17] MEDS ORDERED: MIDAZOLAM HCL 2 MG/2 ML INJ ONE (11:03)
[2024-03-17] MEDS ORDERED: LIDOCAINE 1% MPF 5 ML VIAL ONE (11:13)
[2024-03-17] MEDS: SUCCINYLCHOLINE 20 MG/ML (10 ML) IV ONE (11:40)
--- NOTE | 2024-03-17 11:42 | PN ---
Date of Progress Note: 03/17/2024 Subjective: The patient is still complaining of pain. It is localized more to the right lower quadr ant. No nausea or vomiting. Objective: Vital Signs: Stable. Abdomen: She is tender with rebound now in the right lower quadrant. There is no tenderness in the right upper quadrant or anywhere else in the abdomen. Laboratory Data: White count is 5000. Assessment: Acute appendicitis. Plan: Laparoscopic appendectomy, possible open. The patient understands risks, benefits, and altern atives and agrees to procedure. Please note, we tried treating with antibiotics, it was unsuccessful . /MODL Voice ID: [id number] Report ID: [id number]
[2024-03-17] MEDS ORDERED: EPHEDRINE SULF 50 MG/ML VIAL ONE (12:14)
[2024-03-17] MEDS: NA CHLORIDE 0.9% 1,000 ML ONE (12:24)
[2024-03-17] MEDS: SUGAMMADEX SODIUM 200 MG/2 ML VIAL IV ONE (12:26)
--- NOTE | 2024-03-17 12:47 | P.OP ---
Date of Service: 03/17/24 Preop diagnosis: Acute appendicitis Postop diagnosis: Same Procedure performed: Laparoscopic appendectomy Surgeon: Mickey Concepcion MD Health Informatics Advisor: Loren MONIQUE Estimated blood loss: Minimal Specimen: Appendix Findings: As above Anesthesia: General Complications: None Drains: None Fluids and blood products: Nonapplicable Disposition: Recovery room Operative note: Patient brought to the OR and placed in supine position. General anesthesia began. Patient prepped and draped in usual sterile fashion. Marcaine 0.5% infiltrated locally. 2 cm supraumbilical midline incision made. Subcutaneous tissue divided. Bleeding controlled with cautery. Fascia identified and divided. #1 Vicryl stay suture placed. 12 mm trocar placed into the peritoneal cavity under direct vision. Pneumoperitoneum established. Two 5 mm trocar placed under direct vision. 1 trocar placed in the suprapubic region and the other one placed in the left lower quadrant. Appendix identified. It was dilated, and there was mild inflammation. Endo JAIME stapling device used to divide the base of the appendix on the cecum and the mesoappendix. Appendix retrieved through the umbilicus via Endo Catch bag. There was no evidence of bleeding or bowel injury appreciated. All trocars removed under direct vision. Stay sutures tied to each other to reapproximate the fascial defect. Subcutaneous wounds irrigated and bleeding controlled with cautery. 3-0 chromic used to approximate subcutaneous tissue and close skin. Sterile dressing appli ed and patient awakened. Patient taken to recovery room in good general condition. CC:
[2024-03-17] MEDS: HYDROMORPHONE HCL 1 MG/ML INJ ONE (12:58)
[2024-03-17] MEDS: ONDANSETRON 4 MG/2 ML VIAL ONE (13:05)
[2024-03-17] MEDS ORDERED: ONDANSETRON 4 MG/2 ML VIAL IV PRN (13:11)
[2024-03-17] MEDS: FENTANYL CITR 100 MCG/2 ML ONE (13:15)
[2024-03-17] MEDS: HYDROCODONE/APAP 7.5/325 MG TAB PO PRN (14:42)
[2024-03-17] MEDS: HYDROMORPHONE HCL 1 MG/ML INJ IV PRN (16:46)
[2024-03-18 06:35] LABS: Absolute Lymphocytes (CBC) 1.6 K/uL (0.7-4.9); Absolute Monocytes 0.6 K/uL (0.1-1.3); Absolute Neutrophil 6.3 K/uL (1.8-8.0); Basophils % 0.3 % (0-1.3); Eosinophils % 0.5 % (0-4.4); Hemoglobin 11.9 g/dL (12.0-15.0); MCH 28.9 pg (27.0-35.0); MCHC 33.9 g/dL (32.0-36.0); MCV 85.4 fL (80-100); MPV 7.7 fL (7.6-11.3); Monocytes % 7.1 % (3.3-12.3); Neutrophils % 73.1 % (41.7-73.7); Nucleated Red Blood Cells % 0.1 % (0-0); Platelets 332 thou/uL (152-406); Red Cell Distribution Width 12.4 % (12.1-15.2)
[2024-03-18 08:32] VITALS: BP 138/88; TEMP 98.1
[2024-03-18 09:23] VITALS: O2SAT 98
--- NOTE | 2024-03-18 09:32 | PN ---
Date of Progress Note: 03/18/2024 Subjective: The patient is awake, alert. No complaint. Vitals stable, afebrile. Laboratory data r eviewed. White count is normal. H and H are stable. Abdomen is benign. Assessment: Status post laparoscopic appendectomy. Recommendations: The patient cleared from surgery for discharge. Discharge instructions given. The patient to follow up with me next week. /MODArcadio Voice ID: [id number] Report ID: [id number]
== END 2024-03-18 11:15 | disposition home or self-care (01) | DRG 398 ==
LOC: ER 06:24 → ERHOLD 12:12 → 4TH 17:12 → ERHOLD 17:37 → 4TH 19:48 → OBSVTOIN 03-18 08:18
PROVIDERS: ADMIT Hospitalist; ATTEND Hospitalist
PROC: 0DTJ4ZZ Resection of Appendix, Percutaneous Endoscopic Approach (ICD-10-PCS; principal; 2024-03-17 10:30)
DX: K35.80 Unspecified acute appendicitis (principal); Z68.43 Body mass index [BMI] 50.0-59.9, adult; E66.9 Obesity, unspecified; Z87.891 Personal history of nicotine dependence; Z90.710 Acquired absence of both cervix and uterus
CPT/HCPCS: 36415; 74177; 80048; 80053; 80076; 84484; 85025; 85610; 85730; 88304; 94010; 96361; 96365; 96366; 96375; 99285; G0378; J1170; J2001; J2250; J2270; J2405; J2543; J2704; J2710; J3010; J7030; Q9967

== ENCOUNTER 2024-05-02 05:20 | Emergency (ER) | payer BC ==
[2024-05-02 06:02] LABS: Absolute Basophils 0.1 K/uL (0-0.5); Absolute Eosinophils 0.1 K/uL (0-0.5); Absolute Lymphocytes (CBC) 2.1 K/uL (0.7-4.9); Absolute Monocytes 0.7 K/uL (0.1-1.3); Absolute Neutrophil 8.1 K/uL (1.8-8.0); Basophils % 0.6 % (0-1.3); Eosinophils % 1.3 % (0-4.4); Hematocrit 37.5 % (36.0-45.0); Hemoglobin 12.5 g/dL (12.0-15.0); Lymphocytes % 18.6 % (15.3-44.8); MCH 28.2 pg (27.0-35.0); MCHC 33.2 g/dL (32.0-36.0); MPV 7.6 fL (7.6-11.3); Monocytes % 6.7 % (3.3-12.3); Neutrophils % 72.8 % (41.7-73.7); Nucleated Red Blood Cells % 0.1 % (0-0); Platelets 353 thou/uL (152-406); RBC Red Blood Cell Count 4.41 M/uL (3.86-4.86); Red Cell Distribution Width 13.1 % (12.1-15.2)
[2024-05-02 06:30] LABS: Albumin/Globulin Ratio 0.8 (1.1-1.8); Bilirubin Total 0.5 mg/dL (0.2-1.0); Globulin 3.8 g/dL (2.3-3.5); Protein, Total 6.8 g/dL (6.4-8.2)
[2024-05-02] MEDS ORDERED: METOCLOPRAMIDE 10 MG/2mL INJ ONE (06:34)
[2024-05-02] MEDS ORDERED: KETOROLAC 30 MG/ML INJ ONE (06:34)
[2024-05-02] MEDS ORDERED: ONDANSETRON 4 MG/2 ML VIAL ONE (06:34)
[2024-05-02] MEDS ORDERED: MORPHINE 4 MG/ML SYR ONE ×2 (06:35→08:12)
[2024-05-02] MEDS ORDERED: NA CHLORIDE 0.9% 1,000 ML ONE (06:35)
[2024-05-02 07:12] LABS: Specific Gravity 1.021 (1.005-1.030)
[2024-05-02 07:14] LABS: Specific Gravity 1.021 (1.005-1.030); Sqamous Epithelial <5 /HPF (None Seen); Urine Bacteria <20 /HPF (<20); Urine Bilirubin NEGATIVE (Negative); Urine Blood Trace (Negative); Urine Clarity Turbid (Clear); Urine Color Light-Yellow (Yellow); Urine Culture Reflex Order NOT NEEDED; Urine Glucose NEGATIVE (Negative); Urine Ketones NEGATIVE (Negative); Urine Microscopic Reflex YN ORDER UMIC; Urine Mucus Slight /HPF (None Seen); Urine Nitrite NEGATIVE (Negative); Urine Protein NEGATIVE (Negative); Urine RBC <5 /HPF (None Seen); Urine Urobilinogen Normal (Normal); Urine WBC <5 /HPF (<5); Urine pH 6.5 (5.0-7.0)
--- NOTE | 2024-05-02 08:38 | RAD REPORT ---
EXAMINATION: CT ABDOMEN AND PELVIS WITH CONTRAST CLINICAL INDICATION: ABD PAIN TECHNIQUE: CT abdomen and pelvis was performed, after the administration of IV contrast, as per [facility]. Axial, sagittal and coronal reconstructions were obtained. One or more of the following dose reduction techniques were used: Automated exposure control, adjustment of the mA and k V according to patient size, and iterative reconstruction. Unless otherwise specified, incidental findings do not require dedicated imaging follow-up. COMPARISON: 03/16/2024 FINDINGS: LOWER CHEST: The visualized lung bases are clear. LIVER: Mild fatty liver is present. No focal lesion or biliary dilatation is seen. Large gallstone is present in the gallbladder. SPLEEN: Normal size. No focal lesion. PANCREAS: No mass, ductal dilation, or tony-pancreatic fluid. ADRENALS: Normal; no mass. KIDNEYS: Normal size and contour. No hydronephrosis. GASTROINTESTINAL TRACT: No evidence of free air, significant intra-abdominal free fluid, bowel obstru ction or abscess. There is mild inflammation surrounding a segment of the sigmoid colon in the left lower quadrant. Several diverticula are present in this region. This likely indicates mild acute diverticulitis. APPENDIX: Appendix surgically absent. LYMPH NODES: No lymphadenopathy. MUSCULOSKELETAL: No acute or suspicious osseous abnormality. ADDITIONAL FINDINGS: 4 cm nonspecific probable cystic lesion right adnexal location suspected. IMPRESSION: Mild inflammatory changes surrounding a segment of the sigmoid colon left lower quadrant. This probab ly represents mild acute diverticulitis. After appropriate treatment, follow-up colonoscopy would be recommended. Cholelithiasis.
[2024-05-02] MEDS ORDERED: CEFTRIAXONE 2000 MG/VIAL ONE (09:00)
[2024-05-02] MEDS ORDERED: METRONIDAZOLE 500mg IVPB 500 MG/100 ML BAG IV ONE (09:02)
[2024-05-02] MEDS ORDERED: NA CHLORIDE 0.9% 100 ML ONE (09:02)
[2024-05-02] MEDS ORDERED: CIPROFLOXACIN 400mg IV 400 MG/200 ML BAG IV ONE (09:02)
--- NOTE | 2024-05-02 09:32 | ER ---
Nurse's Notes [facility] Name: Kadie George Age: 48 yrs Sex: Female : 1975 Arrival Date: 05/02/2024 Time: 05:20 Bed 19 Private MD: Diagnosis: Abdominal tenderness;Left sided colitis;Diverticulitis of large intestine without perforation or abscess without bleeding;Diverticular disease of large intestine without perforation or abscess Presentation: 05/02 05:50 Chief complaint: Patient states: abdominal pain. Coronavirus screen: Client denies kj2 travel out of the [place] in the last 14 days. Ebola Screen: No symptoms or risks identified at this time. Initial Sepsis Screen: Does the patient meet any 2 criteria? No. Patient's initial sepsis screen is negative. Does the patient have a suspected source of infection? No. Patient's initial sepsis screen is negative. Risk Assessment: Do you want to hurt yourself or someone else? Patient reports no desire to harm self or others. Onset of symptoms was May 01, 2024. 05:50 Method Of Arrival: Ambulatory kj2 05:50 Acuity: GIOVANI 3 kj2 Triage Assessment: 05:50 General: Appears in no apparent distress. Behavior is cooperative. Pain: Complains of kj2 pain in abdominal pain Pain currently is 9 out of 10 on a pain scale. Neuro: Level of Consciousness is awake, alert, obeys commands, Oriented to person, place, time, situation. Cardiovascular: Patient's skin is warm and dry. Respiratory: Airway is patent Respiratory effort is unlabored. GI: Abdomen is tender. : No deficits noted. 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 - Infectious Disease History:: Denies. - Social history:: Smoking status: unknown. - Family history:: not pertinent. Screenin:29 [facility] ED Fall Risk Assessment (Adult) History of falling in the last 3 months, kj2 including since admission No falls in past 3 months (0 pts) Confusion or Disorientation No (0 pts) Intoxicated or Sedated No (0 pts) Impaired Gait No (0 pts) Mobility Assist Device Used No (0 pt) Altered Elimination No (0 pt) Score/Fall Risk Level 0 - 2 = Low Risk Maintained a safe environment, Hourly rounding (assess needs \T\ fall precautionary measures) done. Abuse screen: Denies threats or abuse. Denies injuries from another. Nutritional screening: No deficits noted. Tuberculosis screening: No symptoms or risk factors identified. Assessment: 06:28 General: see triage assessment. kj2 08:00 Reassessment: Patient appears in no apparent distress at this time. Patient and/or db family updated on plan of care and expected duration. Pain level reassessed. Patient is alert, oriented x 3, equal unlabored respirations, skin warm/dry/pink. Pain: Pain currently is 4 out of 10 on a pain scale. Respiratory: Airway is patent. 08:24 General: Appears in no apparent distress. comfortable, Behavior is calm, cooperative. db Neuro: Level of Consciousness is awake, alert, obeys commands, Oriented to person, place, time, situation. 09:15 Reassessment: Patient appears in no apparent distress at this time. Patient and/or db family updated on plan of care and expected duration. Pain level reassessed. Patient is alert, oriented x 3, equal unlabored respirations, skin warm/dry/pink. 09:37 Reassessment: DC PENDING ANTIBIOTIC COMPLETION. db 10:12 Reassessment: Patient appears in no apparent distress at this time. Patient and/or db family updated on plan of care and expected duration. Pain level reassessed. Patient is alert, oriented x 3, equal unlabored respirations, skin warm/dry/pink. PT LAST ANTIBIOTIC INFUSING Patient states feeling better. Patient states symptoms have improved. 10:42 Reassessment: Patient appears in no apparent distress at this time. Patient and/or db family updated on plan of care and expected duration. Pain level reassessed. Patient is alert, oriented x 3, equal unlabored respirations, skin warm/dry/pink. Patient states feeling better. Patient states symptoms have improved. Vital Signs: 05:50 Weight 158.76 kg; Height 5 ft. 5 in. ; Pain 9/10; kj2 06:59 Pulse 78; Temp 98.7(O); Pulse Ox 98% on R/A; kj2 06:59 BP 168 / 91; kj2 07:00 BP 155 / 93; Pulse 70; Resp 16; Pulse Ox 97% on R/A; db 08:00 BP 165 / 96; Pulse 75; Resp 16; Pulse Ox 95% on R/A; Pain 4/10; db 08:30 BP 157 / 88; Pulse 72; Resp 16; Pulse Ox 100% ; db 09:30 BP 159 / 96; Pulse 69; Resp 16; Pulse Ox 100% ; db 10:00 BP 153 / 91; Pulse 64; Resp 16; Pulse Ox 99% on R/A; db 05:50 Body Mass Index 58.24 (158.76 kg, 165.1 cm) kj2 05:50 Pain Scale: Adult kj2 08:00 Pain Scale: Adult db [place]a Coma Score: 08:00 Eye Response: spontaneous(4). Motor Response: obeys commands(6). Verbal Response: sp4 oriented(5). Total: 15. ED Course: 05:22 Patient arrived in ED. jj6 05:38 Zeke Kennedy MD is Attending Physician. sp4 05:58 Inserted saline lock: 20 gauge in left antecubital area, using aseptic technique. Blood oe collected. Flushed with 10 mL NS. 05:58 CRP Sent. oe 05:58 CBC with Diff Sent. oe 05:58 CMP Sent. oe 05:58 Lipase Sent. oe 06:18 Marleny Quintanilla, RN is Primary Nurse. kj2 06:26 Triage completed. kj2 06:29 Patient has correct armband on for positive identification. Bed in low position. Call kj2 light in reach. Adult w/ patient. Provided Education on: call light. 06:30 No provider procedures requiring assistance completed. kj2 06:59 Test, Urine Sent. kj2 06:59 Urinalysis w/ reflexes Sent. kj2 07:[address] via wheelchair. db 07:36 CT Abd/Pelvis - IV Contrast Only In Process Unspecified. EDMS 08:00 Pulse ox on. NIBP on. Warm blanket given. db 08:51 Attending Physician role handed off by Zeke Kennedy MD [place] 08:51 Jan Lopez MD is Attending Physician. [place] 09:19 Maria E Hemphill MD is Referral Physician. [place]ina 10:41 IV discontinued, intact, bleeding controlled, No redness/swelling at site. db Administered Medications: 06:58 Drug: Ondansetron IVP 4 mg IVP once; over 2 minutes Route: IVP; Site: left antecubital; kj2 08:14 Follow up: Response: No adverse reaction db 06:58 Drug: NS 0.9% IV 1000 ml IV at 1 bolus Per protocol; to be given as a bolus over 60 kj2 minutes Route: IV; Rate: 1 bolus; Site: left antecubital; 09:14 Follow up: Response: No adverse reaction; IV Status: Completed infusion; IV Intake: db 1000ml 06:58 Drug: metoCLOPramide IVP 10 mg IVP once; over 1 to 2 minutes Route: IVP; Site: left kj2 antecubital; 08:14 Follow up: Response: No adverse reaction db 06:59 Drug: TORadol - Ketorolac IVP 15 mg IVP once Route: IVP; Site: left antecubital; kj2 08:14 Follow up: Response: No adverse reaction db 06:59 Drug: morphine IVP or IV 4 mg IVP once over 4 mins Route: IVP; Infused Over: 4 mins; kj2 Site: left antecubital; 08:14 Follow up: Response: No adverse reaction db 08:15 Drug: morphine IVP or IV 4 mg IVP once over 4 mins Route: IVP; Infused Over: 4 mins; db Site: left antecubital; 09:36 Follow up: Response: No adverse reaction; Pain is decreased db 09:02 Drug: Rocephin IV 2 grams IV at per protocol once; Given slow IV push per pharmarcy db instructions Route: IV; Rate: per protocol; Site: left antecubital; 09:36 Follow up: Response: No adverse reaction; IV Status: Completed infusion; IV Intake: db 100ml 09:14 Drug: metroNIDAZOLE IVPB 500 mg 100 ml IVPB at 200 ml/hr once over 30 mins Volume: 100 db ml; Route: IVPB; Rate: 200 ml/hr; Infused Over: 30 mins; Site: left antecubital; 10:12 Follow up: Response: No adverse reaction; IV Status: Completed infusion; IV Intake: db 100ml 09:35 Drug: Ciprofloxacin IVPB 400 mg 200 ml IVPB once over 60 mins Volume: 200 ml; Route: db IVPB; Infused Over: 60 mins; Site: left antecubital; 10:41 Follow up: Response: No adverse reaction; IV Status: Completed infusion; IV Intake: db 200ml Medication: 06:29 VIS not applicable for this client. kj2 Intake: 09:14 IV: 1000ml; Total: 1000ml. db 09:36 IV: 100ml; Total: 1100ml. db 10:12 IV: 100ml; Total: 1200ml. db 10:41 IV: 200ml; Total: 1400ml. db Outcome: :31 Discharge ordered by . valentina 10:41 Discharged to home ambulatory, with family, leelee 10:41 Condition: stable 10:41 Discharge instructions given to patient, family, Instructed on discharge instructions, follow up and referral plans. Prescriptions given X 4, 10:43 Patient left the ED. db Signatures: Dispatcher [employer] EDJan Miles MD MD cha Espinosa, Orlando oe Jeffries, Jennifer jj6 Alessia Dunbar, RN RN Zeke Christensen MD MD sp4 Marleny Quintanilla, STEVE RN kj2
--- NOTE | 2024-05-02 09:32 | EDPHYS ---
Physician Documentation [facility] Name: Kadie George Age: 48 yrs Sex: Female : 1975 Arrival Date: 05/02/2024 Time: 05:20 Bed 19 Private MD: VICENTE Physician Jan Lopez HPI: 05/02 08:00 This 48 yrs old Female presents to ER via Ambulatory with complaints of sp4 Abdominal Pain, PT HAD APPENDECTOMY APPROX 30 DAYS AGO. 08:00 48-year-old female presents with bilateral lower abdominal pain starting suddenly in sp4 the last 24 hours patient has history of laparoscopic appendectomy on 03/16/[address] Concepcion . 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 - Infectious Disease History:: Denies. - Social history:: Smoking status: unknown. - Family history:: not pertinent. ROS: 08:00 Constitutional: Negative for fever, chills, and weight loss, positive lower abdominal sp4 pain 08:00 All other systems are negative, Exam: 08:00 Constitutional: This is a well developed, well nourished patient who is awake, alert, sp4 and in no acute distress. Head/Face: Normocephalic, atraumatic. Eyes: Pupils equal round and reactive to light, extra-ocular motions intact. Lids and lashes normal. Conjunctiva and sclera are not injected. Cornea within normal limits. Periorbital areas with no swelling, redness, or edema. ENT: Nares patent. No nasal discharge, no septal abnormalities noted. Tympanic membranes are normal and external auditory canals are clear. Oropharynx with no redness, swelling, or masses, exudates, or evidence of obstruction, uvula midline. Mucous membranes moist. Neck: Trachea midline, no thyromegaly or masses palpated, and no cervical lymphadenopathy. Supple, full range of motion without nuchal rigidity, or vertebral point tenderness. Chest/axilla: Normal chest wall appearance and motion. Nontender with no deformity. No lesions are appreciated. Cardiovascular: Regular rate and rhythm with a normal S1 and S2. No gallops, murmurs, or rubs. Normal PMI, no JVD. No pulse deficits. Respiratory: Lungs have equal breath sounds bilaterally, clear to auscultation and percussion. No rales, rhonchi or wheezes noted. No increased work of breathing, no retractions or nasal flaring. Abdomen/GI: Soft, with normal bowel sounds. No distension or tympany. No guarding or rebound. No evidence of tenderness throughout. Back: No spinal tenderness. No costovertebral tenderness. Skin: Warm, dry with normal turgor. Normal color with no rashes, no lesions, and no evidence of cellulitis. MS/ Extremity: Pulses equal, no cyanosis. Neurovascular intact. Full, normal range of motion. Neuro: Awake and alert, GCS 15, oriented to person, place, time, and situation. Cranial nerves II-XII grossly intact. Motor strength 5/5 in all extremities. Sensory grossly intact. Psych: Awake, alert, with orientation to person, place and time. Behavior, mood, and affect are within normal limits Vital Signs: 05:50 Weight 158.76 kg; Height 5 ft. 5 in. ; Pain 9/10; kj2 06:59 Pulse 78; Temp 98.7(O); Pulse Ox 98% on R/A; kj2 06:59 BP 168 / 91; kj2 07:00 BP 155 / 93; Pulse 70; Resp 16; Pulse Ox 97% on R/A; db 08:00 BP 165 / 96; Pulse 75; Resp 16; Pulse Ox 95% on R/A; Pain 4/10; db 08:30 BP 157 / 88; Pulse 72; Resp 16; Pulse Ox 100% ; db 09:30 BP 159 / 96; Pulse 69; Resp 16; Pulse Ox 100% ; db 10:00 BP 153 / 91; Pulse 64; Resp 16; Pulse Ox 99% on R/A; db 05:50 Body Mass Index 58.24 (158.76 kg, 165.1 cm) kj2 05:50 Pain Scale: Adult kj2 08:00 Pain Scale: Adult db [place] Coma Score: 08:00 Eye Response: spontaneous(4). Motor Response: obeys commands(6). Verbal Response: sp4 oriented(5). Total: 15. MDM: 05:43 Medical Screening Exam initiated sp4 08:04 Differential diagnosis: diverticulitis, Dysmenorrhea, gastritis. Data reviewed: vital sp4 signs, nurses notes, radiologic studies, CT scan. Transition of care: After a detail discussion of the patient's case, care is transferred to Jan Lopez MD. 05/02 05:39 Order name: CBC with Diff; Complete Time: 08:04 sp4 05/02 05:39 Order name: CMP; Complete Time: 08:04 sp4 05/02 05:39 Order name: Lipase; Complete Time: 08:04 sp4 05/02 05:39 Order name: Test, Urine; Complete Time: 08:04 sp4 05/02 05:39 Order name: Urinalysis w/ reflexes; Complete Time: 08:04 sp4 05/02 05:43 Order name: CRP; Complete Time: 08:04 sp4 05/02 05:39 Order name: CT Abd/Pelvis - IV Contrast Only; Complete Time: 08:52 sp4 05/02 05:39 Order name: IV Saline Lock; Complete Time: 05:58 sp4 05/02 05:39 Order name: Labs collected and sent; Complete Time: 05:58 sp4 Administered Medications: 06:58 Drug: Ondansetron IVP 4 mg IVP once; over 2 minutes Route: IVP; Site: left antecubital; kj2 08:14 Follow up: Response: No adverse reaction db 06:58 Drug: NS 0.9% IV 1000 ml IV at 1 bolus Per protocol; to be given as a bolus over 60 kj2 minutes Route: IV; Rate: 1 bolus; Site: left antecubital; 09:14 Follow up: Response: No adverse reaction; IV Status: Completed infusion; IV Intake: db 1000ml 06:58 Drug: metoCLOPramide IVP 10 mg IVP once; over 1 to 2 minutes Route: IVP; Site: left kj2 antecubital; 08:14 Follow up: Response: No adverse reaction db 06:59 Drug: TORadol - Ketorolac IVP 15 mg IVP once Route: IVP; Site: left antecubital; kj2 08:14 Follow up: Response: No adverse reaction db 06:59 Drug: morphine IVP or IV 4 mg IVP once over 4 mins Route: IVP; Infused Over: 4 mins; kj2 Site: left antecubital; 08:14 Follow up: Response: No adverse reaction db 08:15 Drug: morphine IVP or IV 4 mg IVP once over 4 mins Route: IVP; Infused Over: 4 mins; db Site: left antecubital; 09:36 Follow up: Response: No adverse reaction; Pain is decreased db 09:02 Drug: Rocephin IV 2 grams IV at per protocol once; Given slow IV push per pharmarcy db instructions Route: IV; Rate: per protocol; Site: left antecubital; 09:36 Follow up: Response: No adverse reaction; IV Status: Completed infusion; IV Intake: db 100ml 09:14 Drug: metroNIDAZOLE IVPB 500 mg 100 ml IVPB at 200 ml/hr once over 30 mins Volume: 100 db ml; Route: IVPB; Rate: 200 ml/hr; Infused Over: 30 mins; Site: left antecubital; 10:12 Follow up: Response: No adverse reaction; IV Status: Completed infusion; IV Intake: db 100ml 09:35 Drug: Ciprofloxacin IVPB 400 mg 200 ml IVPB once over 60 mins Volume: 200 ml; Route: db IVPB; Infused Over: 60 mins; Site: left antecubital; 10:41 Follow up: Response: No adverse reaction; IV Status: Completed infusion; IV Intake: db 200ml Disposition Summary: 05/02/24 09:31 Discharge Ordered Notes: Location: Home [place] Problem: new valentina Symptoms: have improved valentina Condition: Stable valentina Diagnosis - Abdominal tenderness valentina - Left sided colitis valentina - Diverticulitis of large intestine without perforation or abscess without bleeding valentina - Diverticular disease of large intestine without perforation or abscess valentina Followup: valentina - With: Private Physician - When: 2 - 3 days - Reason: Recheck today's complaints, Continuance of care, Re-evaluation by your physician Followup: valentina - With: Maria E Hemphill MD - When: 2 - 3 days - Reason: Recheck today's complaints, Re-evaluation by your physician Discharge Instructions: - Discharge Summary Sheet valent[place] - Diverticulitis valentina - Obesity, Adult valentina - Diverticulitis, [id number] valent[place] - Obesity, Adult, [id number] valentina - Colitis valentina Forms: - Medication Reconciliation Form valentina - Antibiotic Education valentina - Prescription Opioid Use valentina - Patient Portal Instructions valentina - Leadership Thank You Letter valentina Prescriptions: - Colace 100 mg Oral Tablet - take 1 tablet ORAL route every 12 hours; 14 tablet; Refills: 0, Product [place] Selection Permitted - Flagyl 500 mg Oral Tablet - take 1 tablet ORAL route every 6 hours for 10 days; 40 tablet; Refills: 0, [facility] Product Selection Permitted - Cipro 500 mg Oral tablet - take 1 tablet ORAL route every 12 hours for 10 days; 20 tablet; Refills: 0, [facility] Product Selection Permitted - dicyclomine 20 mg Oral tablet - take 1 tablet ORAL route 4 times per day; 28 tablet; Refills: 0, Product [facility] Selection Permitted Signatures: Dispatcher [employer] EDMS Jan Lopez MD MD cha Benton, Danielle, RN RN db Zeke Kennedy MD MD sp4 Marleny Quintanilla RN RN kj2 Corrections: (The following items were deleted from the chart) 05:39 05:39 CBC+H.LAB.BRZ ordered. EDMS EDMS 05:39 05:39 COMPREHENSIVE METABOLIC PANEL+C.LAB.BRZ ordered. EDMS EDMS 05:39 05:39 LIPASE+C.LAB.BRZ ordered. EDMS EDMS 05:39 05:39 Test, Urine+UC.LAB.BRZ ordered. EDMS EDMS 05:39 05:39 Urinalysis+U.LAB.BRZ ordered. EDMS EDMS 05:39 05:39 Abdomen Pelvis W Con+CT.RAD.BRZ ordered. EDMS EDMS
[2024-05-02 13:11] VITALS: TEMP 98.7
[2024-05-02 13:17] VITALS: BP 153/91; O2SAT 99
== END 2024-05-02 10:43 | disposition home or self-care (01) ==
LOC: ER 05:20
DX: K51.50 Left sided colitis without complications (principal); K57.32 Diverticulitis of large intestine without perforation or abscess without bleeding; Z98.890 Other specified postprocedural states
CPT/HCPCS: 96365; 96367; 96361; 85025; 81001; 36415; 81025; 83690; 80053; 86140; 74177; 96375; 99285; Q9967; J2765; J2405; J0696; J0744; J7030

== ENCOUNTER 2024-09-26 19:17 | Emergency (ER) | payer BC ==
[2024-09-26] MEDS ORDERED: ONDANSETRON 4 MG/2 ML VIAL ONE (21:54)
[2024-09-26] MEDS ORDERED: KETOROLAC 30 MG/ML INJ ONE (21:54)
[2024-09-26] MEDS ORDERED: NA CHLORIDE 0.9% 1,000 ML ONE (21:55)
[2024-09-26] MEDS ORDERED: MORPHINE 4 MG/ML SYR ONE (21:55)
[2024-09-26 22:10] LABS: Absolute Basophils 0.1 K/uL (0-0.5); Absolute Eosinophils 0.2 K/uL (0-0.5); Absolute Lymphocytes (CBC) 3.6 K/uL (0.7-4.9); Absolute Monocytes 0.7 K/uL (0.1-1.3); Absolute Neutrophil 7.3 K/uL (1.8-8.0); Basophils % 0.5 % (0-1.3); Eosinophils % 1.5 % (0-4.4); Hematocrit 37.4 % (36.0-45.0); Hemoglobin 12.4 g/dL (12.0-15.0); Lymphocytes % 30.8 % (15.3-44.8); MCH 28.1 pg (27.0-35.0); MCHC 33.2 g/dL (32.0-36.0); MCV 84.5 fL (80-100); MPV 7.9 fL (7.6-11.3); Monocytes % 5.6 % (3.3-12.3); Neutrophils % 61.6 % (41.7-73.7); Nucleated Red Blood Cells % 0.1 % (0-0); Platelets 366 thou/uL (152-406); RBC Red Blood Cell Count 4.42 M/uL (3.86-4.86); Red Cell Distribution Width 13.3 % (12.1-15.2)
[2024-09-26 22:20] LABS: Albumin 3.1 g/dL (3.4-5.0); Albumin/Globulin Ratio 0.7 (1.1-1.8); Anion Gap 7.7 mEq/L (5.0-15.0); Bilirubin Total 0.2 mg/dL (0.2-1.0); Globulin 4.2 g/dL (2.3-3.5); Potassium 3.7 mEq/L (3.5-5.1); Protein, Total 7.3 g/dL (6.4-8.2)
--- NOTE | 2024-09-26 23:48 | RAD REPORT ---
EXAM DESCRIPTION: CT ABDOMEN PELVIS WITH IV CONTRAST 09/26/2024 11:28 PM CDT CLINICAL HISTORY: 49 years, Female, Abdominal pain. COMPARISON: CT Abdomen Pelvis 05/02/2024. PROCEDURE: Contrast-enhanced images of the abdomen and pelvis were performed from the lung bases to the ischial tuberosities after the administration of IV contrast. In addition multiplanar reformats in the coronal and sagittal plane were obtained and reviewed. An individualized dose optimization technique, Automated Exposure Control, was utilized for the perfo rmed procedure. FINDINGS: Lung bases: The lung bases demonstrate to be clear. The heart is prominent Liver: The liver demonstrates to be normal, no focal lesions identified. Gallbladder: The gallbladder demonstrates presence of high density structures corresponding to cholel ithiasis. No significant inflammatory changes and/or biliary duct dilatation. Adrenal glands: The adrenal glands demonstrate to be normal. Pancreas: The pancreas demonstrate to be normal. Spleen: The spleen demonstrate to be within normal limits. Kidneys: The kidneys demonstrate normal uptake of contrast media. There is no evidence for nephroli thiasis and/or hydronephrosis. GI: Grossly the unopacified stomach, small bowel and large bowel demonstrate to be within normal limi ts. No evidence for bowel dilatation and/or free air. Surgical suture within the right lower quadrant/cecum correspond to previous appendectomy. The left-sided colon/sigmoid colon demonstrates p resence of minimal diverticulosis. : The urinary bladder demonstrate to be unremarkable. Genitalia: The uterus is absent. There are no adnexal masses. Abdominal aorta: The aorta demonstrate to be within normal limits. Retroperitoneum: There is no retroperitoneal lymphadenopathy. There is no evidence for ascites and/or abnormal fluid collections. Bones: The bony structures demonstrate to be within normal limits. No evidence for compression deform ity and/or significant skeletal lesions. Soft tissues: The soft tissues demonstrate to be unremarkable. IMPRESSION: No evidence for bowel dilatation and/or free air. Cholelithiasis. Status post appendectomy and hysterectomy. Minimal diverticulosis without evidence for acute diverticulitis. Electronically signed by: Lobito Melgoza MD 09/26/2024 11:44 PM CDT RP Due to temporary technical issues with the PACS/[employer] reporting system, reports are being kerry d by the in-house radiologist without review as a courtesy to ensure prompt reporting the interpreting radiologist is fully responsible for the content of the report. Transcribed Date/Time: 09/26/2024 11:48 PM
--- NOTE | 2024-09-26 23:55 | ER ---
Nurse's Notes [facility] Name: Kadie George Age: 49 yrs Sex: Female : 1975 Arrival Date: 09/26/2024 Time: 19:17 Bed 4 Private MD: Diagnosis: Calculus of gallbladder without cholecystitis without obstruction Presentation: 09/26 20:27 Chief complaint: Patient states: R sided abdominal pain, n/v/d and indigestion starting al5 this afternoon. Coronavirus screen: At this time, the client does not indicate any symptoms associated with coronavirus-19. Ebola Screen: No symptoms or risks identified at this time. Initial Sepsis Screen: Does the patient meet any 2 criteria? No. Patient's initial sepsis screen is negative. Does the patient have a suspected source of infection? No. Patient's initial sepsis screen is negative. Risk Assessment: Do you want to hurt yourself or someone else? Patient reports no desire to harm self or others. Onset of symptoms was September 26, 2024. 20:27 Method Of Arrival: Ambulatory al5 20:27 Acuity: GIOVANI 3 al5 Triage Assessment: 20:28 General: Appears in no apparent distress. uncomfortable, Behavior is calm, cooperative. al5 Pain: Complains of pain in right upper quadrant and right lower quadrant Pain currently is 8 out of 10 on a pain scale. EENT: No signs and/or symptoms were reported regarding the EENT system. Neuro: Level of Consciousness is awake, alert, obeys commands, Oriented to person, place, time, situation. Cardiovascular: Capillary refill < 3 seconds Patient's skin is warm and dry. Respiratory: Airway is patent Respiratory effort is even, unlabored, Respiratory pattern is regular, symmetrical. GI: Abdomen is non-distended, obese, Reports lower abdominal pain, upper abdominal pain, diarrhea, nausea, vomiting. : No signs and/or symptoms were reported regarding the genitourinary system. Derm: Skin is intact, is healthy with good turgor, Skin is pink, warm \T\ dry. normal. Musculoskeletal: No signs and/or symptoms reported regarding the musculoskeletal system. 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 - Infectious Disease History:: Denies. - Social history:: Smoking status: Patient denies any tobacco usage or history of. - Family history:: not pertinent. Screenin:29 [facility] ED Fall Risk Assessment (Adult) History of falling in the last 3 months, al5 including since admission No falls in past 3 months (0 pts) Confusion or Disorientation No (0 pts) Intoxicated or Sedated No (0 pts) Impaired Gait No (0 pts) Mobility Assist Device Used No (0 pt) Altered Elimination No (0 pt) Score/Fall Risk Level 0 - 2 = Low Risk Maintained a safe environment. Abuse screen: Denies threats or abuse. Denies injuries from another. Nutritional screening: No deficits noted. Tuberculosis screening: No symptoms or risk factors identified. Assessment: 20:29 Reassessment: see triage assessment. al5 22:20 General: Appears in no apparent distress. uncomfortable, Behavior is calm, cooperative. bm8 Pain: Complains of pain in right upper quadrant Pain currently is 8 out of 10 on a pain scale. Neuro: No deficits noted. Level of Consciousness is awake, alert, obeys commands, Oriented to person, place, time, situation, Appropriate for age. Cardiovascular: Denies chest pain, Capillary refill < 3 seconds in bilateral fingers Patient's skin is warm and dry. Respiratory: Airway is patent Respiratory effort is even, unlabored, Respiratory pattern is regular, symmetrical. GI: Abdomen is obese, Bowel sounds present X 4 quads. Abdomen is tender to palpation in right upper quadrant Reports nausea, Pain is 8 out of 10 on a pain scale. : No signs and/or symptoms were reported regarding the genitourinary system. 09/27 00:15 Reassessment: Patient appears in no apparent distress at this time. Patient and/or bm8 family updated on plan of care and expected duration. Pain level reassessed. Patient is alert, oriented x 3, equal unlabored respirations, skin warm/dry/pink. Patient denies pain at this time. Patient states feeling better. Patient states symptoms have improved. Vital Signs: 09/26 20:27 BP 176 / 123; Pulse 85; Resp 18; Temp 97.5; Pulse Ox 99% on R/A; Weight 158.76 kg; al5 Height 5 ft. 5 in. ; Pain 8/10; 22:20 BP 151 / 85; Pulse 80; Resp 17; Temp 97.5; Pulse Ox 99% ; Pain 6/10; bm8 23:35 BP 142 / 84; Pulse 77; Resp 17; Pulse Ox 100% ; cp4 09/27 00:15 BP 138 / 77; Pulse 84; Resp 17; Temp 97.6; Pulse Ox 100% ; Pain 0/10; bm8 09/26 20:27 Body Mass Index 58.24 (158.76 kg, 165.1 cm) al5 09/26 20:27 Pain Scale: Adult al5 22:20 Pain Scale: Adult bm8 09/27 00:15 Pain Scale: Adult bm8 [place] Coma Score: 09/26 22:20 Eye Response: spontaneous(4). Motor Response: obeys commands(6). Verbal Response: bm8 oriented(5). Total: 15. 09/27 00:15 Eye Response: spontaneous(4). Motor Response: obeys commands(6). Verbal Response: bm8 oriented(5). Total: 15. ED Course: 09/26 19:21 Patient arrived in ED. gm2 19:22 Roberto Celaya MD is Attending Physician. rt 20:28 Triage completed. al5 20:28 Arm band placed on right wrist. Patient placed in waiting room, in view of staff al5 members, Patient notified of wait time. 20:29 Patient has correct armband on for positive identification. Provided Education on: al5 notification of wait time. 20:29 No provider procedures requiring assistance completed. al5 21:46 Ras Trevino, RN is Primary Nurse. bm8 22:20 Client placed on continuous cardiac and pulse oximetry monitoring. NIBP monitoring bm8 applied. Pulse ox on. NIBP on. Door closed. Noise minimized. Warm blanket given. Pillow given. Verbal reassurance given. Head of bed elevated. 22:20 Inserted saline lock: 20 gauge in right antecubital area, using aseptic technique. bm8 Blood collected. Flushed with 10 mL NS. Patient maintains SpO2 saturation greater than 95% on room air. 22:40 CT Abd/Pelvis - IV Contrast Only In Process Unspecified. EDMS 23:55 Mickey Concepcion MD is Referral Physician. rt 09/27 00:15 IV discontinued, intact, bleeding controlled, No redness/swelling at site. Pressure bm8 dressing applied. Administered Medications: 09/26 22:19 Drug: TORadol - Ketorolac IVP 15 mg IVP once Route: IVP; Site: right antecubital; bm8 09/27 00:16 Follow up: Response: No adverse reaction bm8 09/26 22:19 Drug: Ondansetron IVP 4 mg IVP once; over 2 minutes Route: IVP; Site: right antecubital;bm8 09/27 00:16 Follow up: Response: No adverse reaction bm8 09/26 22:19 Drug: morphine IVP or IV 4 mg IVP once over 4 mins Route: IVP; Infused Over: 4 mins; bm8 Site: right antecubital; 09/27 00:16 Follow up: Response: No adverse reaction bm8 09/26 22:19 Drug: NS 0.9% IV 1000 ml IV at 1 bolus Per protocol; to be given as a bolus over 60 bm8 minutes Route: IV; Rate: 1 bolus; Site: right antecubital; 09/27 00:16 Follow up: Response: No adverse reaction; IV Status: Completed infusion bm8 Medication: 09/26 20:29 VIS not applicable for this client. al5 Outcome: 23:55 Discharge ordered by . rt 09/27 00:15 Discharged to home ambulatory, bm8 Condition: stable Discharge instructions given to patient, family, Instructed on discharge instructions, follow up and referral plans. no drinking with medication, no driving heavy equipment, medication usage, safety practices, Demonstrated understanding of instructions, follow-up care, medications, 00:17 Patient left the ED. bm8 Signatures: Dispatcher [employer] EDOH Roberto Celaya MD MD rt Diamond Paul cp4 Yuliana Ghotra gm2 Ras Trevino, RN RN bm8 Liida Tran RN RN al5
--- NOTE | 2024-09-26 23:56 | EDPHYS ---
Physician Documentation [facility] Name: Kadie George Age: 49 yrs Sex: Female : 1975 Arrival Date: 09/26/2024 Time: 19:17 Bed 4 Private MD: ED Physician Roberto Celaya HPI: 09/27 00:39 This 49 yrs old Female presents to ER via Ambulatory with complaints of Abdominal Pain. rt 00:39 Patient presents to the ED with right upper quadrant pain with nausea, vomiting, rt diarrhea, nonbloody, nonbilious starting this afternoon after eating a fatty meal. States the pain duration intermittent, then became constant. Denies other acute complaints at this time, symptoms are moderate in severity, aching nature, radiates to the back, no other aggravating or alleviating factors.. 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 - Infectious Disease History:: Denies. - Social history:: Smoking status: Patient denies any tobacco usage or history of. - Family history:: not pertinent. ROS: 09/27 00:39 Constitutional: Negative for fever, chills, and weight loss, Cardiovascular: Negative rt for chest pain, palpitations, and edema, Respiratory: Negative for shortness of breath, cough, wheezing, and pleuritic chest pain, MS/Extremity: Negative for injury and deformity, Skin: Negative for injury, rash, and discoloration, Neuro: Negative for headache, weakness, numbness, tingling, and seizure, Abdomen/GI: Positive for abdominal pain, nausea, vomiting, and diarrhea, Exam: 00:39 Constitutional: This is a well developed, well nourished patient who is awake, alert, rt and in no acute distress. Head/Face: Normocephalic, atraumatic. Chest/axilla: Normal chest wall appearance and motion. Nontender with no deformity. No lesions are appreciated. Cardiovascular: Regular rate and rhythm with a normal S1 and S2. No gallops, murmurs, or rubs. Normal PMI, no JVD. No pulse deficits. Respiratory: Lungs have equal breath sounds bilaterally, clear to auscultation and percussion. No rales, rhonchi or wheezes noted. No increased work of breathing, no retractions or nasal flaring. Skin: Warm, dry with normal turgor. Normal color with no rashes, no lesions, and no evidence of cellulitis. MS/ Extremity: Pulses equal, no cyanosis. Neurovascular intact. Full, normal range of motion. Neuro: Awake and alert, GCS 15, oriented to person, place, time, and situation. Cranial nerves II-XII grossly intact. Motor strength 5/5 in all extremities. Sensory grossly intact. Cerebellar exam normal. Normal gait. 00:39 Abdomen/GI: Tenderness to the right upper quadrant with mild guarding, no rebound, distention, Vital Signs: 09/26 20:27 BP 176 / 123; Pulse 85; Resp 18; Temp 97.5; Pulse Ox 99% on R/A; Weight 158.76 kg; al5 Height 5 ft. 5 in. ; Pain 8/10; 22:20 BP 151 / 85; Pulse 80; Resp 17; Temp 97.5; Pulse Ox 99% ; Pain 6/10; bm8 23:35 BP 142 / 84; Pulse 77; Resp 17; Pulse Ox 100% ; cp4 09/27 00:15 BP 138 / 77; Pulse 84; Resp 17; Temp 97.6; Pulse Ox 100% ; Pain 0/10; bm8 09/26 20:27 Body Mass Index 58.24 (158.76 kg, 165.1 cm) al5 09/26 20:27 Pain Scale: Adult al5 22:20 Pain Scale: Adult bm8 09/27 00:15 Pain Scale: Adult bm8 [place] Coma Score: 09/26 22:20 Eye Response: spontaneous(4). Motor Response: obeys commands(6). Verbal Response: bm8 oriented(5). Total: 15. 09/27 00:15 Eye Response: spontaneous(4). Motor Response: obeys commands(6). Verbal Response: bm8 oriented(5). Total: 15. MDM: 09/26 20:32 Medical Screening Exam initiated rt 09/27 00:43 Differential Diagnosis Cholecystitis, cholelithiasis, pancreatitis. Data reviewed: rt vital signs, nurses notes, lab test result(s), radiologic studies. I considered the following discharge prescriptions or medication management in the emergency department Medications were administered in the Emergency Department. See MAR. Independent interpretation of the following test(s) in the Emergency Department CT Scan: My interpretation is Cholelithiasis seen on my interpretation of CT scan images. Care significantly affected by the following chronic conditions: Hypertension. Counseling: I had a detailed discussion with the patient and/or guardian regarding the historical points, exam findings, and any diagnostic results supporting the discharge/admit diagnosis, lab results, radiology results, the need for outpatient follow up, to return to the emergency department if symptoms worsen or persist or if there are any questions or concerns that arise at home. Response to treatment: the patient's symptoms have markedly improved after treatment. 09/26 20:33 Order name: CBC with Diff; Complete Time: 22:24 rt 09/26 20:33 Order name: CMP; Complete Time: 22:24 rt 09/26 20:33 Order name: Lipase; Complete Time: 22:24 rt 09/26 20:33 Order name: CT Abd/Pelvis - IV Contrast Only rt 09/26 20:33 Order name: IV Saline Lock; Complete Time: 22:19 rt 09/26 20:33 Order name: Labs collected and sent; Complete Time: 22:19 rt Administered Medications: 09/26 22:19 Drug: TORadol - Ketorolac IVP 15 mg IVP once Route: IVP; Site: right antecubital; bm8 09/27 00:16 Follow up: Response: No adverse reaction 8 09/26 22:19 Drug: Ondansetron IVP 4 mg IVP once; over 2 minutes Route: IVP; Site: right antecubital;bm8 09/27 00:16 Follow up: Response: No adverse reaction 8 09/26 22:19 Drug: morphine IVP or IV 4 mg IVP once over 4 mins Route: IVP; Infused Over: 4 mins; bm8 Site: right antecubital; 09/27 00:16 Follow up: Response: No adverse reaction 8 09/26 22:19 Drug: NS 0.9% IV 1000 ml IV at 1 bolus Per protocol; to be given as a bolus over 60 bm8 minutes Route: IV; Rate: 1 bolus; Site: right antecubital; 09/27 00:16 Follow up: Response: No adverse reaction; IV Status: Completed infusion bm8 Disposition Summary: 09/26/24 23:55 Discharge Ordered Notes: Location: Home rt Problem: new rt Symptoms: have improved rt Condition: Stable rt Diagnosis - Calculus of gallbladder without cholecystitis without obstruction rt Followup: rt - With: Mickey Concepcion MD - When: 2 - 3 days - Reason: Discharge Instructions: - Discharge Summary Sheet rt - Cholelithiasis rt Forms: - Medication Reconciliation Form rt - Antibiotic Education rt - Prescription Opioid Use rt - Patient Portal Instructions rt - Leadership Thank You Letter rt Prescriptions: - ondansetron 4 mg Oral Tablet,disintegrating - take 1 tablet ORAL route every 6 hours as needed for nausea; 15 tablet; rt Refills: 0, Product Selection Permitted - Tylenol-Codeine #3 300mg-30mg Oral tablet - take 1 tablet ORAL route every 4 hours As needed; 15 tablet; Refills: 0, rt Product Selection Permitted Signatures: Dispatcher [employer] EDMS Roberto Celaya MD MD rt Ras Trevino, RN RN bm8 Lidia Tran RN RN al5 Corrections: (The following items were deleted from the chart) 09/26 20:33 20:33 CBC+H.LAB.BRZ ordered. EDMS EDMS 20:33 20:33 COMPREHENSIVE METABOLIC PANEL+C.LAB.BRZ ordered. EDMS EDMS 20:33 20:33 LIPASE+C.LAB.BRZ ordered. EDMS EDMS 20:33 20:33 Urinalysis+U.LAB.BRZ ordered. EDMS EDMS 20:33 20:33 Abdomen Pelvis W Con+CT.RAD.BRZ ordered. EDMS EDMS
[2024-09-28 11:02] VITALS: O2SAT 100
[2024-09-28 11:04] VITALS: BP 138/77; TEMP 97.6
== END 2024-09-27 00:17 | disposition home or self-care (01) ==
LOC: ER 19:17
DX: K80.20 Calculus of gallbladder without cholecystitis without obstruction (principal)
CPT/HCPCS: 96361; 85025; 36415; 83690; 80053; 74177; 96375; 96374; 99284; Q9967; J2405; J7030